=== PATIENT | male | born 1955 | race Native Hawaiian/Other Pacific Islander ===

== ENCOUNTER 2018-12-05 05:51 | Observation (INO) | payer BC ==
[~2018-12-05 05:51] MED LIST: Buffered Lidocaine 1% SYRIN* 1 ML/SYRINGE INTRADERM ONE
[2018-12-05] MEDS ORDERED: DiMENhydriNATE IV* 50 MG/ML VIAL IV PUSH ONE (06:00)
[2018-12-05] MEDS ORDERED: Lactated Ringers 1000 ML Bag* 1,000 ML IV SCH ×2 (06:00→13:00)
[2018-12-05] MEDS ORDERED: Famotidine IV* 10 MG/ML 2 ML (20 mg) IV ONE (06:00)
[2018-12-05] MEDS ORDERED: DiMENhydriNATE IV* 50 MG/ML VIAL ONE (06:31)
[2018-12-05] MEDS ORDERED: ceFAZolin 2 GM PREMIX in ORs 2 GM/50 ML BAG IVPB ONE (06:32)
[2018-12-05] MEDS ORDERED: Buffered Lidocaine 1% SYRIN* 1 ML/SYRINGE INTRADERM ONE (06:32)
[2018-12-05] MEDS ORDERED: Famotidine IV* 10 MG/ML 2 ML (20 mg) ONE (06:32)
[2018-12-05] MEDS ORDERED: Lidocaine 1% MPF wEPI 200,000* 30 ML SDV ONE (06:45)
[2018-12-05] MEDS ORDERED: Bacitracin INJECTION* 50,000 UNITS ONE (06:46)
[2018-12-05] MEDS ORDERED: Thrombin 5,000 UNITS* 1 APPLIC KIT - topical use - TOPICAL ONE (06:46)
[2018-12-05] MEDS ORDERED: fentaNYL* 50 MCG/ML 5 ML VIAL (250 MCG VIAL) ONE (07:04)
[2018-12-05] MEDS ORDERED: Succinylcholine* 20 MG/ML 10 ML VIAL ONE (07:04)
[2018-12-05] MEDS ORDERED: Propofol* 10 MG/ML 20 ML BTL ONE (07:04)
[2018-12-05] MEDS ORDERED: Midazolam* 1 MG/ML 5 ML VIAL (5 MG) ONE (07:04)
[2018-12-05] MEDS ORDERED: Lidocaine 2% PF * 5 ML VIAL ONE (07:05)
[2018-12-05] MEDS ORDERED: oxyCODONE/Acetamin 5/325 MG* TAB PO PRN (07:31)
[2018-12-05] MEDS ORDERED: PROCHLORPERAZINE INJ 5 MG/ML 2 ML VIAL IV PRN (07:31)
[2018-12-05] MEDS ORDERED: HYDROcodone/ACETAMIN 5-325 MG* 1 TAB PO PRN (07:31)
[2018-12-05] MEDS ORDERED: Naloxone* 0.4 MG/ML 1 ML VIAL IV PRN (07:31)
[2018-12-05] MEDS ORDERED: EPHEDrine (Pressors)* 50 MG/ML VIAL ONE (08:17)
[2018-12-05] MEDS ORDERED: Phenylephrine 10 MG/ML VIAL* 1 ML VIAL ONE (08:22)
[2018-12-05] MEDS ORDERED: Rocuronium* 10 MG/ML VIAL ONE ×2 (08:48→09:21)
[2018-12-05] MEDS ORDERED: Dexamethasone IV* 4 MG/ML 1 ML (4 MG) ONE (09:28)
[2018-12-05] MEDS ORDERED: fentaNYL* 50 MCG/ML 2 ML VIAL (100 MCG VIAL) ONE ×3 (09:37→13:17)
[2018-12-05] MEDS ORDERED: Ondansetron INJ* 2 MG/ML VIAL ONE (10:30)
[2018-12-05] MEDS ORDERED: Glycopyrrolate IV* 0.2 MG/ML 1 ML VIAL ONE (10:59)
[2018-12-05] MEDS ORDERED: Neostigmine Methylsulfate* 3 MG/3 ML SYRINGE ONE (10:59)
[2018-12-05] MEDS: fentaNYL* 50 MCG/ML 2 ML VIAL (100 MCG VIAL) IV PRN ×3 (12:32→13:19)
[2018-12-05] MEDS ORDERED: Magnesium Hydroxide LIQ* 30 ML UDC PO PRN (12:34)
[2018-12-05] MEDS ORDERED: Ondansetron INJ* 2 MG/ML VIAL IV PRN (12:34)
--- NOTE | 2018-12-05 14:08 | OP ---
OPERATIVE REPORT: DATE OF OPERATION: 12/05/18 DATE OF : 55 SURGEON: Sarah Ruff MD. ASSISTANTS: TONYA Pitts; TONYA Priest The case was done with the assistance of surgical PA because of the complexity of the case. ANESTHESIA: General. PRE-OP DIAGNOSES: 1. Degenerative disk disease. 2. Cervical stenosis. 3. Cervical spondylotic myelopathy with radiculopathy. POST-OP DIAGNOSES: 1. Degenerative disk disease. 2. Cervical stenosis. 3. Cervical spondylotic myelopathy with radiculopathy. OPERATIVE PROCEDURE: The patient underwent anterior cervical diskectomy and fusion at C5-6 and C6-7 with PEEK interbody spacers, autologous bone graft, and DBX putty with plate and pedicle screws with intraoperative monitoring and intraoperative microscope. ESTIMATED BLOOD LOSS: 25 mL. COMPLICATIONS: None. SUMMARY: The patient is a very pleasant 63-year-old gentleman with complaints of neck pain radiating to left more than right upper extremity. The patient had been diagnosed with cervical spondylotic myelopathy with polyradiculopathy and also peripheral neuropathy in both upper and lower extremities with a left ulnar and left median neuropathy. The patient failed conservative treatment modalities and he was offered the option of surgical intervention. After explaining the expectation, limitations, and possible complications of the procedure with complications including, but not limited to bleeding, infection, risk of injury to adjacent structures, coma, paralysis, , need for additional procedures, anesthesia risks, stroke, blindness, cancer, instability , hardware failure, adjacent level disease, pseudoarthrosis, spinal fluid leak, Tony syndrome, injury to the trachea or esophagus, need for tracheostomy or gastrostomy, inability to improve; the patient and his were agreeable to proceed with surgery and informed consent was obtained. The patient also understood that his condition may not improve and in fact may get worse after surgery and that the goal of the procedure is to stabilize his neurological condition. He understood that the operative plan may be modified according to intraoperative findings and conditions and that he may need to have additional procedures in the future. He also understood that he may need to have prolonged ICU stay, prolonged hospitalization, and need for prolonged rehabilitation. The patient is also scheduled for followup with Dr. Lam for his ulnar and median neuropathy and he is followed by Dr. Tobin for his peripheral neuropathy. DESCRIPTION OF PROCEDURE: The patient was brought to the operating room and was placed under general anesthesia by anesthesia team. He was carefully positioned supine on the Elton table and all bony prominences were meticulously padded. His skin was prepped and draped in the standard fashion. After appropriate surgical pause and patient identification, a small right transverse incision at the level of C6-7 approximately, was performed after infiltrating the skin with local anesthetic. The appropriate surgical level was confirmed with intraoperative fluoroscopic imaging prior to the incision. The skin was undermined and the platysma was then gently elevated and divided with sharp dissection. Then, the platysma was gently undermined and the plane between the medial border of the sternocleidomastoid and the medial structures was gently developed with sharp and blunt dissection. The prevertebral fascia was identified and gently divided, and after exposing the anterior part of the cervical spine, intraoperative fluoroscopic imaging confirmed appropriate surgical level. [place] pins were placed in the vertebral body of C5, C6, and C7 , and self-retaining retractors were introduced into the field. A diskectomy was performed under microscopic magnification at the C5-6 level and later at the C6-7 level, after positioning of the retractors and after incising the annulus fibrosus with a #15 surgical blade. The locally harvested bone graft was saved and used for the arthrodesis part of the procedure. The diskectomy and disk space preparation was performed with the use of pituitary rongeurs, Kerrison punches, high-speed drill, and curettes. After dividing the posterior longitudinal ligament and performing foraminotomies bilaterally. Of note, prior to insertion of the cage, the thecal sac was found to be free of any pressure phenomenon and insertion of the interbody cages was done after meticulous hemostasis confirmation, copious irrigation, and meticulous inspection. An 8-mm height PEEK interbody cage for the C5-6 and 9-mm height for the C6-7 level were inserted after being filled with locally harvested bone graft and DBX. The [place] pins were gently removed and appropriate sized surgical plate was placed and secured in place with screws. Intraoperative fluoroscopic imaging confirmed excellent placement of all hardware. Self- retaining retractors were gently removed and meticulous hemostasis was confirmed and copious irrigation was performed and after meticulous inspection, the wound was closed by layers over a Andrews drain which was tunneled through a separate stab wound incision. The platysma was approximated with 2-0 interrupted Vicryl sutures. The subcutaneous tissue was approximated with 2-0 inverted interrupted Vicryl sutures and the skin was covered with Dermabond. At the end of the procedure, all counts were reported to be correct. The patient remained hemodynamically stable throughout the case. The patient was then extubated and was transferred to Recovery in excellent condition. I was present and scrubbed for the entirety of the case. The case was done with the assistance of surgical PAs because of the complexity of the case. [id number]/[facility] #: [id number] JOCELYN
[2018-12-05] MEDS: HYDROcodone/ACETAMIN 5-325 MG* 1 TAB PO PRN ×2 (14:12→18:12)
[2018-12-05] MEDS ORDERED: Dextrose 50% Syringe 50 ML* 25 GM/50 ML SYRINGE IV PUSH PRN (18:56)
[2018-12-05] MEDS: Atorvastatin* 10 MG TAB PO SCH (20:44)
[2018-12-05] MEDS: Ezetimibe TAB* 10 MG PO SCH (20:44)
[2018-12-05] MEDS: Lisinopril TAB* 10 MG PO SCH (20:44)
[2018-12-05] MEDS: EMPAGLIFOZIN 25 MG PO SCH (20:46)
[2018-12-05] MEDS: Insulin GLARGINE(*) 1 UNITS UNIT SUBCUT SCH (20:47)
--- NOTE | 2018-12-05 21:45 | CONS ---
CC: Lucy King NP; Sarah Ruff MD * CONSULTATION REPORT: DATE OF CONSULT: 12/05/18 PRIMARY CARE PROVIDER: Lucy King NP. NEUROSURGEON: Sarah Ruff MD. REQUESTING PHYSICIAN: Sarah Ruff MD. ATTENDING PHYSICIAN: Ruchi Hernandez MD (dictated by TONYA Martins). REASON FOR CONSULTATION: Co-medical management. HISTORY OF PRESENT ILLNESS/HOSPITAL COURSE: Mr. Saleh is a 63-year-old male with a past medical history of cervical radiculopathy, diabetes mellitus, hypertension, hyperlipidemia, who presented to the hospital today for an anterior cervical diskectomy with fusion. He is seen in his room after the procedure. He states that he has anterior right-sided cervical neck pain that he rates at a 6/10. He describes painful swallowing and talking but notes that he is able to do both. He is eating a regular diet without any difficulty at the time of discussion. He continues to complain of right arm pain, numbness, and tingling which also occur in both of his feet. He notes that this is chronic. He denies any difficulty breathing. He denies chest pain, shortness of breath, abdominal pain, nausea, vomiting, diarrhea, constipation. PAST MEDICAL HISTORY: 1. Cervical radiculopathy. 2. Diabetes mellitus. 3. Hypertension. 4. Hyperlipidemia. PAST SURGICAL HISTORY: Appendectomy. HOME MEDICATIONS: 1. Aspirin 81 mg p.o. daily. 2. Cholecalciferol 2000 units p.o. q.a.m. 3. Empagliflozin 10 mg p.o. at bedtime. 4. Ezetimibe 10 mg p.o. at bedtime. 5. Insulin aspart 20 units before breakfast, 20 units before lunch, 24 units before dinner. 6. Insulin detemir 30 units a.m., 50 units p.m. 7. Lisinopril 20 mg p.o. at bedtime. 8. Loratadine 10 mg p.o. q.a.m. 9. Multivitamin 1 tab p.o. q.a.m. 10. Pravastatin 20 mg p.o. at bedtime. ALLERGIES: No known drug allergies. FAMILY HISTORY: Positive for diabetes mellitus, EtOH abuse leading to liver disease, stroke - aneurysmal. Negative for heart disease, cancer. SOCIAL HISTORY: The patient is a former smoker; he quit approximately 20 years ago; he has a 26-frea-bhkm history. He drinks alcohol weekly averaging approximately 4 to 6 alcoholic drinks per week. 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 He lives at home and is happily . He has no children. REVIEW OF SYSTEMS: A 10-point review of systems was performed and all the pertinent positives and negatives are in the HPI. PHYSICAL EXAM: General: Mr. Saleh is a well-developed, well-nourished 63- year- old obese male who is sitting up in bed with his legs at the floor. He is eating his dinner and talking without difficulty. He has a C-collar in place. He appears his stated age and appears to be in no acute distress. Vital Signs: Temperature 97.4 oral, heart rate 58, respiratory rate 18, oxygen saturation 93% on room air, blood pressure 116/61. HEENT: His visual martines are grossly intact. His pupils are equally round and reactive to light. Extraocular movements are intact. There is no scleral icterus. His hearing appears to be grossly intact. Oral mucous membranes are moist. There are no lesions. The pharynx is clear. Neck: C-collar is in place. The right anterior neck has a bandage in place the entire length of the neck that is clean , dry, and intact. There is a MELVIN drain in place and draining. Cardiovascular: Regular rate and rhythm with S1, S2 present. No murmurs, rubs, clicks, or gallops. There is no JVD. Respiratory: Symmetrical chest expansion without use of accessory muscles. The lungs are clear to auscultation bilaterally. There are no rhonchi, wheeze, or rales. Abdomen is obese. Bowel sounds noted in all quadrants. Abdomen is soft and nontender to palpation. Musculoskeletal : Full range of motion in extremities. Skin is warm and smooth bilaterally. There is no clubbing, cyanosis, or edema. Radial and pedal pulses are palpable. Neuro: The patient is awake. He is alert and oriented x3. He is able to move all his extremities. Motor strength in upper and lower extremities is 5/5. ASSESSMENT AND PLAN: Mr. Saleh is a 63-year-old male with a past medical history of cervical radiculopathy, diabetes, hypertension, hyperlipidemia, who presents to [facility] [place] [place] today for an anterior cervical diskectomy with C5-C6 and C6-C7 fusion. He will be placed on observation for: 1. Status post anterior cervical diskectomy with C5-C6, C6-C7 fusion postop day 1. Management per Dr. Ruff. 2. Diabetes mellitus. The patient is typically on Levemir 30/50, NovoLog before meals at doses 20, 20, 24, and Jardiance 25. Due to the fact that typically p.o. intake is decreased in the hospital setting, the patient will be placed on Levemir 20 b.i.d. Lispro sliding scale will be added a.c. The patient will also continue his Jardiance if it is available. 3. Hypertension. Continue lisinopril 20. 4. Hyperlipidemia. Continue pravastatin 20. 5. FEN: The patient will be placed on consistent carbohydrate diet. 6. Code status: Full code. 7. DVT prophylaxis: Per Neurosurgery, up ad raymundo, SCDs. TIME SPENT: Approximately 30 minutes was spent on this consultation, greater than half that time was spent [id number] with the patient obtaining history, performing physical, and reviewing the plan of care. The case has been reviewed with my attending Dr. Hernandez, who is in agreement with the plan of care. TONYA KEANE [id number]/[facility] #: [id number] MTDAmmy
[2018-12-06] MEDS: HYDROcodone/ACETAMIN 5-325 MG* 1 TAB PO PRN (07:21)
[2018-12-06] MEDS: Cetirizine* 10 MG TAB PO SCH (09:48)
[2018-12-06] MEDS: Cholecalciferol TAB* 1000 UNITS PO SCH (09:48)
[2018-12-06] MEDS ORDERED: PROCHLORPERAZINE INJ 5 MG/ML 2 ML VIAL IV ONE (09:49)
[2018-12-06] MEDS: Insulin LISPRO* 1 UNITS UNIT SUBCUT SCH ×3 (09:50→17:55)
[2018-12-06] MEDS: Insulin GLARGINE(*) 1 UNITS UNIT SUBCUT SCH (09:50)
[2018-12-06] MEDS ORDERED: PROCHLORPERAZINE INJ 5 MG/ML 2 ML VIAL ONE (09:54)
[2018-12-06] MEDS ORDERED: Scopolamine 1.5 mg* PATCH ONE (09:55)
[2018-12-06] MEDS ORDERED: Scopolamine 1.5 mg* PATCH TRANSDERM SCH (10:00)
[2018-12-06] MEDS ORDERED: Scopolamine PATCH Remove* 1 NOTE MISC PATCH OFF SCH (10:00)
--- NOTE | 2018-12-06 10:00 | PN ---
Progress Note - Progress Note Date of Service: 12/06/18 SOAP: Subjective: 63 y/o male s/p ACDF at C5/C6,C6/C7 POD #1 patient has had some episodes of nausea over night, but otherwise has been stable. He has not attempted to eat, but has tolerated oral fluids. His MELVIN drain put 45 over night and his vitals have been stable. Objective: Vital Signs - 8 hr 12/06/18 12/06/18 12/06/18 02:33 03:41 07:21 Temperature 98.7 F Pulse Rate 80 Respiratory 16 18 Rate Blood Pressure 124/60 (mmHg) O2 Sat by Pulse 92 93 Oximetry General: Patient laying in bed comfortable, NAD Neuro: GCS 15, A&O x 3 CN II - XII grossly intact. has some decrease sensation on right UPE 4 th and 5th digit. Motor strength 5/5 bilat. Left UPE forearm decrease sensation. Derm: wound C/D/I Assessment: 63 y/o male post ACDF at C5 - C7 recovering appropriately has not eaten as this time, but is stable. Plan: [1) Encourage walk with PT/OT 2) Have patient attempt to eat 3) D/C planning.
[2018-12-06 10:02] LABS: ABS Lymphocytes 1.2 10^3/ul (1.0-4.8); ABS Monocytes 1.5 10^3/ul (0-0.8); ABS Neutrophils 10.6 10^3/ul (1.5-7.7); Eosinophil % 0.1 %; Hematocrit 40 % (42-52); Hemoglobin 13.3 g/dL (14.0-18.0); Lymphocyte % 8.7 %; Mean Corpuscular HGB Conc 33 g/dL (31-36); Mean Corpuscular Hemoglobin 29 pg (27-31); Mean Corpuscular Volume 89 fL (80-94); Mean Platelet Volume 8.8 fL (7.4-10.4); Nucleated Red Blood Cells % 0.1; Platelet Count 326 10^3/uL (150-450); Red Blood Count 4.52 10^6 /uL (4.18-5.48); Red Cell Distribution Width 14 % (10.5-15); White Blood Count 13.3 10^3/uL (3.5-10.8)
[2018-12-06 10:13] LABS: BUN/Creatinine Ratio 31.3 (8-20); Calcium 9.2 mg/dL (8.6-10.3); EGFR African American 92.4 (>60); EGFR Non-African American 76.3 (>60); Potassium 4.1 mmol/L (3.5-5.0)
[2018-12-06] MEDS: Acetaminophen TAB* 325 MG PO PRN ×2 (13:54→22:11)
--- NOTE | 2018-12-06 17:35 | PN ---
Subjective Date of Service: 12/06/18 Interval History: VS: WNL Labs: post-op leukocytosis and anemia Pt reports nausea this morning and last night after meal. He also reports V. Medications ordered, and he reports that this has since resolved. He c/o decreased appetite. He states that he has neck pain, rating it at 6/10. Denies difficulty swallowing, breathing. Denies CP, SOB, cough, fever, chills, abd pain, n/v/d/c. Objective Active Medications: Acetaminophen (Tylenol Tab*) 650 mg PO Q4H PRN Hydrocodone Bitart/Acetaminophen ([place] 5-325 Tab*) 2 tab PO Q4H PRN Atorvastatin Calcium (Lipitor*) 5 mg PO BEDTIME NATHALY; Protocol Cetirizine HCl (Zyrtec*) 10 mg PO QAM NATHALY Cholecalciferol (Vitamin D Tab*) 1,000 units PO DAILY NATHALY Dextrose (D50w Syringe 50 Ml*) 12.5 gm IV PUSH .FOR FS < 60 - SS PRN Ezetimibe (Zetia Tab*) 10 mg PO BEDTIME NATHALY Empagliflozin (Jardiance) 25 mg PO BEDTIME NATHALY Lactated Ringer's (Lactated Ringers 1000 Ml Bag*) 1,000 mls @ 75 mls/hr IV .per rate NATHALY Insulin Glargine (Lantus(*)) 20 units SUBCUT Q12HR NATHALY Insulin Human Lispro (Humalog*) 0 units SUBCUT AC NATHALY; Protocol Lisinopril (Prinivil Tab*) 20 mg PO BEDTIME NATHALY Magnesium Hydroxide (Milk Of Magnesia Liq*) 30 ml PO DAILY PRN Ondansetron HCl (Zofran Inj*) 4 mg IV Q6H PRN Pharmacy Profile Note (Scopolamine Patch Remove*) 1 note PATCH OFF .AFTER 72 HOURS NATHALY Scopolamine (Transderm-Scop 1.5 Mg Patch*) 1 patch TRANSDERM Q72H NATHALY Vital Signs: Temp Pulse Resp BP Pulse Ox 98.4 F 73 16 131/58 91 12/06/18 11:51 12/06/18 11:51 12/06/18 12:05 12/06/18 11:51 12/06/18 11:51 Oxygen Devices in Use Now: None Appearance: Pt is laying in bed resting comfortably. He wakes easily and respond to questions. Eyes: No Scleral Icterus, PERRLA Ears/Nose/Mouth/Throat: NL Teeth, Lips, Gums, Clear Oropharnyx, Mucous Membranes Moist Neck: NL Appearance and Movements; NL JVP, Trachea Midline, - - CDI dsg to ant R neck. C collar in place. Respiratory: Symmetrical Chest Expansion and Respiratory Effort, Clear to Auscultation Cardiovascular: NL Sounds; No Murmurs; No JVD, RRR, No Edema Abdominal: No Hepatosplenomegaly, - - Abd diffusely TTP without guarding, rebound Extremities: No Edema, No Clubbing, Cyanosis Neurological: Alert and Oriented x 3 Result Diagrams: 12/06/18 09:47 12/06/18 09:47 Assess/Plan/Problems-Billing Assessment: 63yom PMHx DM, HTL, HLD, cervical radiculopathy presents s/p ant cervical discectomy with fusion c5/6, c6/7. - Patient Problems (1) S/P cervical discectomy Comment: -Management per Dr. Grigsby (2) Nausea & vomiting Comment: -Zofran ineffective -Add compazine, scopalamine patch (3) Diabetes mellitus Comment: -Home dosing Detemir 30 a.m., 50 p.m. Given 20 a.m., 20 p.m. post-op -BS with slight elevation -Increase Glargine to 20 a.m., 30 p.m. (4) Hypertension Comment: -Contolled -Continue Lisinopril (5) Hyperlipidemia Comment: -Continue atorvastatin (6) DVT prophylaxis Comment: -Per Neurosurg: SCD, ambulation (7) Full code status Current Visit: Yes Status: Acute Code(s): Z78.9 - OTHER SPECIFIED HEALTH STATUS SNOMED Code(s): 819838367 Status and Disposition: Observation. Discharge per neurosurgery.
[2018-12-06] MEDS ORDERED: Insulin GLARGINE(*) 1 UNITS UNIT SUBCUT SCH (21:00)
[2018-12-06] MEDS: Ezetimibe TAB* 10 MG PO SCH (22:10)
[2018-12-06] MEDS: Lisinopril TAB* 10 MG PO SCH (22:10)
[2018-12-06] MEDS: Atorvastatin* 10 MG TAB PO SCH (22:11)
[2018-12-06] MEDS: EMPAGLIFOZIN 25 MG PO SCH (22:12)
[2018-12-07 05:38] LABS: ABS Lymphocytes 1.3 10^3/ul (1.0-4.8); ABS Monocytes 1.3 10^3/ul (0-0.8); ABS Neutrophils 7.6 10^3/ul (1.5-7.7); Eosinophil % 0.2 %; Hematocrit 39 % (42-52); Hemoglobin 12.8 g/dL (14.0-18.0); Mean Corpuscular HGB Conc 33 g/dL (31-36); Mean Corpuscular Hemoglobin 29 pg (27-31); Mean Corpuscular Volume 89 fL (80-94); Mean Platelet Volume 8.7 fL (7.4-10.4); Platelet Count 297 10^3/uL (150-450); Red Blood Count 4.35 10^6 /uL (4.18-5.48); Red Cell Distribution Width 14 % (10.5-15); White Blood Count 10.3 10^3/uL (3.5-10.8)
[2018-12-07] MEDS: Acetaminophen TAB* 325 MG PO PRN ×2 (07:28→11:38)
[2018-12-07] MEDS: Insulin LISPRO* 1 UNITS UNIT SUBCUT SCH ×3 (07:43→16:53)
--- NOTE | 2018-12-07 07:46 | PN ---
Subjective Date of Service: 12/07/18 Interval History: HD # 3 on 12/07 63 yo M with PMH IDDM and cervical radiculopathy presents to neurosurgical service for elective ACDF completed on 12/05 Overnight no acute events, VSS Labs: Normal This morning seen in bed, no further N/V, would like to have BM but otherwise doing OK, has had flatus, feels Tylenol controls pain well. Eager to go home, questions about post op diet, currently tolerating soft. Denies CP, SOB, GI, or other complaints. Objective Active Medications: Acetaminophen (Tylenol Tab*) 650 mg PO Q4H PRN PRN Reason: PAIN Last Admin: 12/07/18 07:28 Dose: 650 mg Hydrocodone Bitart/Acetaminophen ([place] 5-325 Tab*) 2 tab PO Q4H PRN PRN Reason: marked pain Last Admin: 12/06/18 07:21 Dose: 2 tab Atorvastatin Calcium (Lipitor*) 5 mg PO BEDTIME [facility]; Protocol Last Admin: 12/06/18 22:11 Dose: 5 mg Cetirizine HCl (Zyrtec*) 10 mg PO QAM [facility] Last Admin: 12/06/18 09:48 Dose: Not Given Cholecalciferol (Vitamin D Tab*) 1,000 units PO DAILY [facility] Last Admin: 12/06/18 09:48 Dose: Not Given Dextrose (D50w Syringe 50 Ml*) 12.5 gm IV PUSH .FOR FS < 60 - SS PRN PRN Reason: FS < 60 Ezetimibe (Zetia Tab*) 10 mg PO BEDTIME [facility] Last Admin: 12/06/18 22:10 Dose: 10 mg Empagliflozin (Jardiance) 25 mg PO BEDTIME [facility] Last Admin: 12/06/18 22:12 Dose: 25 mg Lactated Ringer's (Lactated Ringers 1000 Ml Bag*) 1,000 mls @ 75 mls/hr IV .per rate [facility] Insulin Glargine (Lantus(*)) 30 units SUBCUT Q24H [facility] Last Admin: 12/06/18 22:12 Dose: 30 unit Insulin Glargine (Lantus(*)) 20 units SUBCUT Q24H [facility] Insulin Human Lispro (Humalog*) 0 units SUBCUT AC [facility]; Protocol Last Admin: 12/07/18 07:43 Dose: Not Given Lisinopril (Prinivil Tab*) 20 mg PO BEDTIME [facility] Last Admin: 12/06/18 22:10 Dose: 20 mg Magnesium Hydroxide (Milk Of Magncarlos alberto Liq*) 30 ml PO DAILY PRN PRN Reason: CONSTIPATION Ondansetron HCl (Zofran Inj*) 4 mg IV Q6H PRN PRN Reason: NAUSEA/VOMITING Last Admin: 12/06/18 08:12 Dose: 4 mg Pharmacy Profile Note (Scopolamine Patch Remove*) 1 note PATCH OFF .AFTER 72 HOURS NATHALY Scopolamine (Transderm-Scop 1.5 Mg Patch*) 1 patch TRANSDERM Q72H [facility] Last Admin: 12/06/18 10:05 Dose: Not Given Vital Signs - 8 hr 12/07/18 12/07/18 12/07/18 03:39 07:34 07:37 Temperature 98.3 F 97.5 F Pulse Rate 87 82 Respiratory 18 18 16 Rate Blood Pressure 161/70 155/72 (mmHg) O2 Sat by Pulse 93 95 Oximetry Oxygen Devices in Use Now: None Appearance: Pleasant man in NAD, [place] J Collar Eyes: No Scleral Icterus, PERRLA Ears/Nose/Mouth/Throat: NL Teeth, Lips, Gums Neck: NL Appearance and Movements; NL JVP Respiratory: Symmetrical Chest Expansion and Respiratory Effort, Clear to Auscultation Cardiovascular: NL Sounds; No Murmurs; No JVD, RRR Abdominal: NL Sounds; No Tenderness; No Distention, No Hepatosplenomegaly Lymphatic: No Cervical Adenopathy Extremities: No Edema Skin: No Rash or Ulcers Neurological: Alert and Oriented x 3 Result Diagrams: 12/07/18 04:58 12/06/18 09:47 Assess/Plan/Problems-Billing Assessment: 63yom PMHx DM, HTL, HLD, cervical radiculopathy presents s/p ACDF c5/6, c6/7. - Patient Problems (1) S/P cervical discectomy Current Visit: Yes Status: Acute Code(s): Z98.890 - OTHER SPECIFIED POSTPROCEDURAL STATES SNOMED Code(s): 803890761 Comment: - Management per Dr. Grigsby - Offer Miralax (ordered) (2) Hypertension Current Visit: Yes Status: Acute Code(s): I10 - ESSENTIAL (PRIMARY) HYPERTENSION SNOMED Code(s): 79457521 Comment: - Continue Lisinopril, could d/c fluids if appropriate (3) Diabetes mellitus Current Visit: Yes Status: Acute Code(s): E11.9 - TYPE 2 DIABETES MELLITUS WITHOUT COMPLICATIONS SNOMED Code(s): 67278223 Comment: - Home dosing Detemir 30 a.m., 50 p.m. Given 20 a.m., 20 p.m. post- op - Glargine to 20 a.m., 30 p.m, well controlled here - Home med Jardiance continued (4) Nausea & vomiting Current Visit: Yes Status: Acute Code(s): R11.2 - NAUSEA WITH VOMITING, UNSPECIFIED SNOMED Code(s): 61939891 Comment: - Well controlled on compazine, PRN scopalamine (5) Hyperlipidemia Current Visit: Yes Status: Acute Code(s): E78.5 - HYPERLIPIDEMIA, UNSPECIFIED SNOMED Code(s): 22248483 Comment: - Continue atorvastatin, Ezitimibe (6) DVT prophylaxis Current Visit: Yes Status: Acute Code(s): Z29.9 - ENCOUNTER FOR PROPHYLACTIC MEASURES, UNSPECIFIED SNOMED Code(s): 056843230 Comment: - Per Neurosurg: SCD, ambulation (7) Full code status Current Visit: Yes Status: Acute Code(s): Z78.9 - OTHER SPECIFIED HEALTH STATUS SNOMED Code(s): 647525100 Status and Disposition: Observation. Discharge per neurosurgery.
[2018-12-07] MEDS ORDERED: Polyethylene Glycol 3350* 17 GM PACKET PO PRN (08:10)
[2018-12-07] MEDS: Cetirizine* 10 MG TAB PO SCH (08:41)
[2018-12-07] MEDS: Cholecalciferol TAB* 1000 UNITS PO SCH (08:41)
[2018-12-07] MEDS ORDERED: Insulin GLARGINE(*) 1 UNITS UNIT SUBCUT SCH (09:00)
--- NOTE | 2018-12-07 09:43 | PN ---
Progress Note - Progress Note Date of Service: 12/07/18 SOAP: Subjective: []POD # 2 Better this AM with less nausea C/O sore throat Objective: []Neck flat dressing intact Neuro intact Assessment: []Satis post op course Plan: []D/C today D/C instructions given
[2018-12-07 12:45] VITALS: BP 136/70
== END 2018-12-07 18:55 | disposition home or self-care (01) ==
LOC: OR 05:51 → SSU 12:34
PROVIDERS: ADMIT Neurological Surgery; ATTEND Neurological Surgery
DX: M50.122 Cervical disc disorder at C5-C6 level with radiculopathy (principal); M48.02 Spinal stenosis, cervical region; M47.12 Other spondylosis with myelopathy, cervical region; M50.123 Cervical disc disorder at C6-C7 level with radiculopathy; I10 Essential (primary) hypertension; E11.9 Type 2 diabetes mellitus without complications; R11.2 Nausea with vomiting, unspecified; E78.5 Hyperlipidemia, unspecified; G62.9 Polyneuropathy, unspecified
CPT/HCPCS: 36415; 72040; 76000; 80048; 85025; 96372; 96374; 96375; A9270-GY; C1713; C1776; C9359; G0378; J0330; J0690; J0780; J1100; J1240; J2001; J2250; J2405; J2704; J2710; J3010

== ENCOUNTER 2018-12-09 14:42 | Inpatient (IN) | payer BC ==
--- OUTSIDE RECORDS SUMMARY | 2018-12-09 14:50 | XMS REPORT | Continuity of Care Document ---
:1955 External Reference #:[id number] Author Name Farzaneh Hernández Care Team Providers Name Role Phone Lucy King NP Primary Care Physician Unavailable Payers Date Identification Numbers Payment Provider Subscriber Policy Number: [id number] [employer] Reuben Saleh PayID: [id number] [address] [address] [place] [address] Advance Directives Description No Information Available Problems Active Problems Provider Date Displacement of cervical intervertebral Sarah Ruff MD Onset: 06/06 disc Note: C5/6, C6/7Document: 04/18/17 - MRI Cervical Spine Wo Neck pain Sarah Ruff MD Onset: 06/19/2017 Carpal tunnel syndrome of left wrist Sarah Ruff MD Onset: 2016 Note: Document: 03/06/17 - [facility]CV Test Results Lesion of ulnar nerve Sarah Ruff MD Onset: 06/19/2017 Note: left Document: 03/06/17 - [facility]G-NCV Test Results Polyneuropathy Sarah Ruff MD Onset: 11/07/2017 Cervical disc disorder Sarah Ruff MD Onset: 11/07/2017 Resolved Problems Brachial neuritis Sarah Ruff MD Onset: 06/19/2017 Resolved: 08/25/2017 Note: has cervical disc disease Family History Date Family Member(s) Observation Comments General Diabetes Type II Sister General Aortic Aneurysm Father Father due to Stroke () - brain aneurysm - age 41 Mother due to Liver Disease () Siblings 8 sister DM; 4 sisters and 4 brothers. Social History Type Date Description Comments Sex Unknown Marital Status Lives With Occupation Currently Working Work Status Currently Working Tobacco Use Start: Unknown Never Smoked Cigarettes ETOH Use Occasionally consumes once a week, 2-3 alcohol drinks Tobacco Use Start: Unknown Patient is a former quit in his 40's, End: Unknown smoker smoked for 30 yrs, 2 ppd Recreational Drug Use Denies Drug Use Smoking Status Reviewed: 10/30/18 Patient is a former quit in his 40's, smoker smoked for 30 yrs, 2 ppd Exercise Type/Frequency Does not exercise physically demanding job. Allergies, Adverse Reactions, Alerts Description No Known Drug Allergies Medications Active Medications SIG Qnty Indications Ordering Provider Date Ezetimibe take 10mg by mouth 90tabs E78.5 Rohan Soto MD 09/26/2018 10mg daily Tablets Freestyle Jeffery 14 use at least 4 1units E11.65 Rohan Soto MD 09/26/2018 Day/[place]/Flash times daily with Monitoring System sensor Device Freestyle Jeffery [address] one sensor 2units E11.65 Rohan Soto MD 2018 Day/Sensor/Flash every 14 days Monitoring System Misc Jardiance take 1 tablet 30tabs E11.Marybeth Soto MD 06/24/2018 25mg daily Tablets Pravastatin Sodium take 20mg by mouth 30tabs E11.65 Rohan Soto MD 2017 daily at night 20mg Tablets Levemir Flextouch 30 units in the 30ml Rohan Soto MD morning and 50 100Unit/ML Solution units at night, Pen-Inject MDD 100 units Novolog Flexpen before meals, 20 15ml Rohan Soto MD units breakfast 100Unit/ML Solution and lunch and 24 Pen-Inject units at dinner meal. Vitamin D-1000 1 by mouth every Unknown Maximum Strength day 1000Unit Tablets Aspir-Low 2 by mouth every Unknown 81mg day Tablets DR Maldonadoatamike-D 24HR 1 tab daily Unknown 10-240mg Tablets ER 24HR Multi For Him 1 by mouth every Unknown day Capsules Lisinopril 1 by mouth every 90tabs Unknown 20mg day Tablets Onetouch Ultra Blue test twice a day Unknown and as needed Strips History Medications Naproxen take 1 tablet by mouth Unknown - 10/29/2018 500mg Tablets twice a day with food Tizanidine HCL take 1 tablet by mouth Unknown - 06/06/2017 4mg Tablets before Bed if needed Ventolin HFA 2 puffs by mouth four Unknown - 10/22/2018 108(90Base) mcg/Act times a day as needed Aerosol Immunizations Description No Information Available Vital Signs Date Vital Result Comment 10/30/2018 9:15am Height 69.5 inches 5'9.50" Weight 265.00 lb Heart Rate 70 /min BP Systolic Sitting 142 mmHg BP Diastolic Sitting 80 mmHg BMI (Body Mass Index) 38.6 kg/m2 10/23/2018 3:15pm Height 69.5 inches 5'9.50" Weight 268.00 lb Heart Rate 88 /min BP Systolic Sitting 140 mmHg BP Diastolic Sitting 76 mmHg Respiratory Rate 14 /min Pain Level 5 BMI (Body Mass Index) 39.0 kg/m2 10/08/2018 3:05pm Height 69.5 inches 5'9.50" Weight 268.00 lb BP Systolic Sitting 136 mmHg BP Diastolic Sitting 80 mmHg Pain Level 5 BMI (Body Mass Index) 39.0 kg/m2 09/26/2018 3:52pm Height 69.5 inches 5'9.50" Weight 267.00 lb w/ shoes Heart Rate 75 /min BP Systolic Sitting 152 mmHg BP Diastolic Sitting 76 mmHg BMI (Body Mass Index) 38.9 kg/m2 08/07/2018 11:30am Height 69.5 inches 5'9.50" Weight 270.00 lb BP Systolic Sitting 130 mmHg BP Diastolic Sitting 80 mmHg Pain Level 3 BMI (Body Mass Index) 39.3 kg/m2 06/24/2018 3:30pm Height 69.5 inches 5'9.50" Weight 270.00 lb w/ shoes Heart Rate 72 /min BP Systolic Sitting 164 mmHg BP Diastolic Sitting 86 mmHg BMI (Body Mass Index) 39.3 kg/m2 04/22/2018 10:51am Height 69.5 inches 5'9.50" Heart Rate 81 /min BP Systolic Sitting 142 mmHg large adult cuff left arm BP Diastolic Sitting 86 mmHg large adult cuff left arm Body Temperature 97.3 F O2 % BldC Oximetry 97 % at rest on room air 04/12/2018 11:47am Height 69.5 inches 5'9.50" Weight 267.00 lb Heart Rate 72 /min BP Systolic 180 mmHg BP Diastolic 94 mmHg BP Systolic Sitting 170 mmHg BP Diastolic Sitting 104 mmHg Respiratory Rate 16 /min BMI (Body Mass Index) 38.9 kg/m2 11/22/2017 3:17pm Height 69.5 inches 5'9.50" Weight 268.00 lb Heart Rate 82 /min BP Systolic 144 mmHg BP Diastolic 78 mmHg Respiratory Rate 16 /min Body Temperature 99.5 F Pain Level 4 BMI (Body Mass Index) 39.0 kg/m2 11/07/2017 1:01pm Height 69.5 inches 5'9.50" Weight 268.00 lb BP Systolic Sitting 160 mmHg BP Diastolic Sitting 88 mmHg Pain Level 3 BMI (Body Mass Index) 39.0 kg/m2 08/22/2017 10:07am Height 69.5 inches 5'9.50" Weight 268.00 lb Heart Rate 88 /min BP Systolic 134 mmHg BP Diastolic 78 mmHg Respiratory Rate 16 /min BMI (Body Mass Index) 39.0 kg/m2 06/19/2017 1:48pm Height 69.5 inches 5'9.50" Weight 269.00 lb Heart Rate 82 /min BP Systolic Sitting 130 mmHg BP Diastolic Sitting 81 mmHg Pain Level 7 BMI (Body Mass Index) 39.2 kg/m2 06/06/2017 1:43pm Height 69.5 inches 5'9.50" Weight 269.00 lb Heart Rate 64 /min BP Systolic Sitting 130 mmHg BP Diastolic Sitting 70 mmHg Pain Level 7 BMI (Body Mass Index) 39.2 kg/m2 Results Test Date Facility Test Result H/L Range Note Inr/Protime 11/29/2018 [facility] Inr 1.10 High 0.82-1.[address] [place] [address] [phone] Laboratory test 11/29/2018 [facility] Partial 35.7 seconds N 26.0-36.[address] [place] [address] PTT [phone] Urinalysis 11/29/2018 [facility] Urine Color Yellow Profile [address] [place] [address] [phone] Urine Appearance Clear Urine Specific [place] 1.029 N 1.010-1.030 Urine pH 5.0 N 5-9 Urine Urobilinogen Negative Negative Urine Ketones Negative Negative Urine Protein Negative Negative Urine Leukocytes Negative Negative Urine Blood Negative Negative Urine Nitrite Negative Negative Urine Bilirubin Negative Negative Urine Glucose 3+(>=500 mg/dL) Abnormal Negative Type & Screen 11/29/2018 [facility] Patient Blood Type O Negative [address] [place] [address] [phone] Antibody Screen NEGATIVE Laboratory test finding 09/26/2018 [facility] Glucose Random 86 Hemoglobin A1c 7.1 High 5-7 Basic Metabolic Panel 07/05/2018 [facility] Sodium 140 mmol/L N 135-145 [address] [place] [address] [phone] Potassium 4.5 mmol/L N 3.5-5.0 Chloride 103 mmol/L N 101-111 Co2 Carbon Dioxide 30 mmol/L N 22-32 Anion Gap 7 mmol/L N 2-11 Glucose 129 mg/dL High 70-100 Blood Urea Nitrogen 29 mg/dL High 6-24 Creatinine 0.97 mg/dL N 0.67-1.17 BUN/Creatinine Ratio 29.9 High 8-20 Calcium 9.5 mg/dL N 8.6-10.3 Egfr Non- 78.2 >60 Egfr 94.6 >60 2 Lipid Profile 07/05/2018 [facility] Triglycerides 105 mg/dL 3 (Trig/Chol/HDL) [address] [place] [address] [phone] Cholesterol 192 mg/dL 4 HDL Cholesterol 41.5 mg/dL 5 LDL Cholesterol 130 mg/dL 6 Laboratory test finding 06/24/2018 [facility] Glucose Random 143 1 Standard intensity warfarin therapeutic range: 2.0-3.0 High intensity warfarin therapeutic range: 2.5-3.5 2 Because ethnic data is not always readily available, this report includes an eGFR for both -Americans and non- Americans. The National Kidney Disease Education Program (NKDEP) does not endorse the use of the MDRD equation for patients that are not between the ages of 18 and 70, are , have extremes of body size, muscle mass, or nutritional status, or are non- or non-. According to the National Kidney Foundation, irrespective of diagnosis, the stage of the disease is based on the level of kidney function: Stage Description GFR(mL/min/1.73 m(2)) 1 Kidney damage with normal or decreased GFR 90 2 Kidney damage with mild decrease in GFR 60-89 3 Moderate decrease in GFR 30-59 4 Severe decrease in GFR 15-29 5 Kidney failure <15 (or dialysis) 3 Desirable: <150 Borderline High: 150-199 High: 200-499 Very High: >500 4 Desirable: <200 Borderline High: 200-239 High: >239 5 Low: <40 Desirable: 40-60 High: >60 6 Desirable: <100 Near Optimal: 100-129 Borderline High: 130-159 High: 160-189 Very High: >189 Procedures Date Code Description Status 09/12/2017 53225 Nerve Conduction 03-04 Studies Completed 09/12/2017 97521 Needle Electromyography Each Extremity W/Related Completed Paraspinal Areas Encounters Type Date Location Provider Dx Diagnosis Office Visit 10/30/2018 [facility] Corinna Tobin, G56.22 Lesion of ulnar 9:00a M.D. nerve, left upper limb G56.02 Carpal tunnel syndrome, left upper limb M50.122 Cervical disc disorder at C5-C6 level with radiculopathy G62.9 Polyneuropathy, unspecified Office Visit 10/23/2018 3:15p Orthopedic Jenni Lam G56.22 Lesion of [facility] ulnar nerve, left upper limb G56.02 Carpal tunnel syndrome, left upper limb Office 10/08/2018 [facility] M50.122 Cervical disc Visit 3:00p [facility] Ruff MD disorder at C5-C6 level with radiculopathy M50.123 Cervical disc disorder at C6-C7 level with radiculopathy M47.12 Other spondylosis with myelopathy, cervical region G62.9 Polyneuropathy, unspecified Office Visit 09/26/2018 4:00p [facility] Rohan Soto, Z79.4 long-term [facility] BR[facility] (current) use of insulin E11.65 Type 2 diabetes mellitus with hyperglycemia I10 Essential (primary) hypertension E78.5 Hyperlipidemia, unspecified Z87.891 Personal history of nicotine dependence Office 08/07/2018 [facility] M50.122 Cervical disc Visit 11:30a [facility] Ruff MD disorder at C5-C6 level with radiculopathy M50.123 Cervical disc disorder at C6-C7 level with radiculopathy G62.9 Polyneuropathy, unspecified Office Visit 06/24/2018 [facility] Madrigal Coch, E11.65 Type 2 diabetes 4:00p Endocrinology of [place] mellitus with [facility] hyperglycemia I10 Essential (primary) hypertension E78.5 Hyperlipidemia, unspecified Z68.39 Body mass index (BMI) 39.0-39.9, adult E66.9 Obesity, unspecified E11.21 Type 2 diabetes mellitus with diabetic nephropathy 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 E11.40 Type 2 diabetes mellitus with diabetic neuropathy, [facility] Office 04/22/2018 [facility] M50.122 Cervical disc Visit 11:00a [facility] Ruff MD disorder at C5-C6 level with radiculopathy M50.123 Cervical disc disorder at C6-C7 level with radiculopathy Office Visit 04/12/2018 11:30a [facility] Corinna Tobin, G56.22 Lesion of [facility] Newman ulnar nerve, left upper limb G56.02 Carpal tunnel syndrome, left upper limb G62.9 Polyneuropathy, unspecified M50.122 Cervical disc disorder at C5-C6 level with radiculopathy I10 Essential (primary) hypertension Office Visit 11/22/2017 3:15p Orthopedic Jenni Lam, G56.22 Lesion of [facility] ulnar nerve, left upper limb G56.02 Carpal tunnel syndrome, left upper limb Office 11/07/2017 [facility] G62.9 Polyneuropathy, Visit 1:30p [facility] Ruff MD unspecified M50.122 Cervical disc disorder at C5-C6 level with radiculopathy M50.123 Cervical disc disorder at C6-C7 level with radiculopathy G56.02 Carpal tunnel syndrome, left upper limb G56.22 Lesion of ulnar nerve, left upper limb Office Visit 08/22/2017 10:00a [facility] Corinna Tobin, 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 M50.122 Cervical disc disorder at C5-C6 level with radiculopathy M50.123 Cervical disc disorder at C6-C7 level with radiculopathy G56.02 Carpal tunnel syndrome, left upper limb G56.22 Lesion of ulnar nerve, left upper limb Office 06/19/2017 [facility] M50.122 Cervical disc Visit 2:00p [facility] Ruff MD disorder at C5-C6 level with radiculopathy M50.123 Cervical disc disorder at C6-C7 level with radiculopathy G56.02 Carpal tunnel syndrome, left upper limb G56.22 Lesion of ulnar nerve, left upper limb Office Visit 06/06/2017 [facility] M50.222 Other cervical 2:00p [facility] Ruff MD disc displacement at C5-C6 level Plan of Treatment Future Appointment(s):01/07/2019 8:30 am - Jenni Lam M.D. at [facility]12/25/2018 9:45 am - Jenni Lam M.D. at [facility]03/07/2019 11:30 am - Sarah Ruff MD at [facility]01/08/2019 11:30 am - Sarah Ruff MD at [facility]05/02/2019 3:30 pm - Corinna Tobin M.D. at [facility]12/17/2018 1:00 pm - Sarah Ruff MD at [facility]12/05/2018 7:30 am - Aletha Higgins PA-C at [facility]12/05/2018 7:30 am - Sarah Ruff MD at [facility]12/25/2018 4:20 pm - Rohan Soto MD at [facility]10/30/2018 - Corinna Tobin M.D.G56.22 Lesion of ulnar nerve, left upper limbRecommendations:Avoid leaning on both your elbows.G56.02 Carpal tunnel syndrome, left upper limbM50.122 Cervical disc disorder at C5-C6 level with radiculopathyFollow up:6 MONTHS (30 min)G62.9 Polyneuropathy, unspecified
--- OUTSIDE RECORDS SUMMARY | 2018-12-09 14:51 | XMS REPORT | Continuity of Care Document ---
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 [address] PayID: [id number] AUSTYN Humphrey [address] Advance Directives Description No Information Available Problems Description No Information Family History Date Family Member(s) Observation Comments Father due to Aneurysm () - cerebral Mother due to Liver Disease () - ETOH First Sister 60 First Sister Diabetes type 2 Grandmother Diabetes lost a leg due to DM.... age 90 Social History Type Date Description Comments Sex Unknown Marital Status Lives With Spouse Diet Healthy, Well Balanced reports his diet is horrible, has had a lot of stress over the year. 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 09/13/2018 daily Fernando, AGITATOR OPERATOR-C Strips Lisinopril 1 by mouth every day 30tabs I10 [facility]. 07/03/2018 20mg Fernando, AGITATOR OPERATOR-C Tablets Blood Pressure use to check blood 1units I10 [facility] R. 05/29/2018 Monitor pressure daily dx HTN Fernando AGITATOR OPERATOR-C Deluxe/Automatic i10 Device Loratadine take one tablet by 30tabs [facility] R. 02/23/2017 10mg mouth every day for Fernando AGITATOR OPERATOR-C Tablets allergies Multi For Him 50+ daily [facility] R. 02/23/2017 Fernando, AGITATOR OPERATOR-C Tablets Pravastatin Sodium take 1 tablet by Unknown mouth every evening 20mg Tablets Jardiance Unknown 25mg Tablets Vitamin D 1 by mouth every day Unknown 1000Unit Tablets Aspir-81 1 by mouth every day Unknown 81mg Tablets DR Torres inject 50 units Unknown subcutaneously 2x 100Unit/ML daily Solution Novolog Flexpen inject up to 60 units 45ml [facility] R. a day with meals Fernando AGITATOR OPERATOR-C 100Unit/ML Solution Pen-Inject History Medications Lisinopril 1 by mouth every 30tabs I10 [facility] R. 05/29/2018 - 10mg day Fernando, AGITATOR OPERATOR-C 07/03/2018 Tablets Xarelto 1 tab by mouth 45tabs [facility] 09/11/2017 - 10mg Tablets daily for 45 days Shortle, TELECOM FIELD TECHNICIAN 10/27/2017 Lisinopril 1 tab daily for 30tabs I10 [facility] 09/03/2017 - 10mg high blood Shortle, TELECOM FIELD TECHNICIAN 05/29/2018 Tablets pressure Ventolin HFA 2 puff inhalation 8gm J18.9 [facility] 08/27/2017 - every 4 to 6 hours Shortle, TELECOM FIELD TECHNICIAN 11/12/2018 108(90Base) mcg/Act as needed Aerosol Levaquin Take 1 tablet by 7tabs [facility] 08/24/2017 - 750mg mouth daily for 7 Shortle, TELECOM FIELD TECHNICIAN 09/03/2017 Tablets days for infection Tamiflu take 1 capsule by 10caps J06.9 Nicole 08/23/2017 - 75mg Capsules mouth 2 times per Shortle, TELECOM FIELD TECHNICIAN 08/27/2017 day for 5 days for flu Doxycycline Hyclate 1 by mouth twice a 20caps J18.9 Lucy NaranjoCynthia 08/09/2017 - day for 10 days ANIBAL King-C 08/19/2017 100mg Capsules Immunizations CPT Code Status Date Vaccine Lot # [id number] Given 10/25/2017 Pneumovax 23 (PPSV23) 65+ years or high risk 2 to [id number] 64 year old [id number] Given 02/23/2017 Tdap (Adacel) [id number] Refused 02/23/2017 Influenza Virus Vaccine, Quadrivalent, 3 Yr > Quad , Preserv Free Vital Signs Date Vital Result Comment 11/13/2018 3:51pm Weight 263.00 lb Weight 119.297 kg BP Systolic 128 mmHg BP Diastolic 74 mmHg Heart Rate 70 /min Body Temperature 98.2 F Respiratory Rate 16 /min Height 70 inches 5'10" BMI (Body Mass Index) 37.7 kg/m2 O2 % BldC Oximetry 98 % 09/04/2018 3:41pm Weight 261.00 lb Weight 118.390 kg BP Systolic 150 mmHg BP Diastolic 80 mmHg Heart Rate 90 /min Body Temperature 98.5 F O2 % BldC Oximetry 95 % 08/21/2018 4:33pm Weight 269.00 lb Weight 122.018 kg BP Systolic 132 mmHg BP Diastolic 70 mmHg Heart Rate 80 /min Body Temperature 98.7 F Respiratory Rate 18 /min 07/03/2018 4:19pm Weight 268.00 lb Weight 121.565 kg BP Systolic 130 mmHg BP Diastolic 70 mmHg Heart Rate 84 /min Body Temperature 97.3 F Respiratory Rate 18 /min 05/29/2018 4:11pm Weight 271.00 lb Weight 122.926 kg BP Systolic 142 mmHg BP Diastolic 77 mmHg Heart Rate 84 /min Body Temperature 99.8 F Height 69.5 inches 5'9.50" BMI (Body Mass Index) 39.4 kg/m2 O2 % BldC Oximetry 96 % 03/27/2018 4:17pm Weight 269.00 lb Weight 122.018 kg BP Systolic 132 mmHg BP Diastolic 79 mmHg Heart Rate 84 /min Body Temperature 99.3 F O2 % BldC Oximetry 96 % 10/25/2017 4:07pm Weight 264.00 lb w/ boots Weight 119.750 kg BP Systolic 118 mmHg BP Diastolic 82 mmHg Heart Rate 84 /min Body Temperature 98.8 F Respiratory Rate 20 /min O2 % BldC Oximetry 98 % 10/01/2017 4:15pm Weight 268.00 lb Weight 121.565 kg BP Systolic 138 mmHg BP Diastolic 72 mmHg Heart Rate 84 /min Body Temperature 98.5 F Respiratory Rate 16 /min 09/11/2017 11:07am Weight 261.00 lb Weight 118.390 kg BP Systolic 140 mmHg BP Diastolic 72 mmHg Body Temperature 99.5 F 09/03/2017 10:34am Weight 264.00 lb Weight 119.750 kg BP Systolic 160 mmHg BP Diastolic 92 mmHg Heart Rate 86 /min Body Temperature 98.0 F O2 % BldC Oximetry 98 % 08/27/2017 2:36pm Weight 263.00 lb Weight 119.297 kg BP Systolic 150 mmHg BP Diastolic 80 mmHg Heart Rate 78 /min Body Temperature 98.9 F Respiratory Rate 16 /min O2 % BldC Oximetry 98 % 08/23/2017 11:22am Weight 267.00 lb Weight 121.111 kg BP Systolic 150 mmHg BP Diastolic 80 mmHg Heart Rate 91 /min Body Temperature 100.6 F Respiratory Rate 18 /min O2 % BldC Oximetry 97 % 08/09/2017 4:20pm Weight 267.00 lb Weight 121.111 kg BP Systolic 168 mmHg BP Diastolic 64 mmHg Heart Rate 107 /min Body Temperature 98.4 F Respiratory Rate 20 /min O2 % BldC Oximetry 98 % 04/09/2017 2:13pm Weight 270.00 lb Weight 122.472 kg BP Systolic 150 mmHg BP Diastolic 88 mmHg Heart Rate 85 /min Body Temperature 98.1 F Respiratory Rate 18 /min O2 % BldC Oximetry 97 % 02/23/2017 3:31pm Weight 265.00 lb Weight 120.204 kg BP Systolic 130 mmHg BP Diastolic 80 mmHg Heart Rate 92 /min Body Temperature 97.9 F Respiratory Rate 14 /min Height 70 inches 5'10" BMI (Body Mass Index) 38.0 kg/m2 Results Test Date Facility Test Result H/L Range Note CBC Auto Diff 11/13/2018 [facility] White Blood 7.9 10^3/uL N 3.5-10.8 [phone] Count Red Blood Count 4.69 10^6/uL N 4.18-5.48 Hemoglobin 13.9 g/dL Low 14.0-18.0 Hematocrit 42 % N 36-46 Mean Corpuscular Volume 89 fL N 80-94 Mean Corpuscular Hemoglobin 30 pg N 27-31 Mean Corpuscular HGB Conc 33 g/dL N 31-36 Red Cell Distribution Width 14 % N 10.5-15 Platelet Count 293 10^3/uL N 150-450 Mean Platelet Volume 9.5 fL N 7.4-10.4 Abs Neutrophils 4.4 10^3/uL N 1.5-7.7 Abs Lymphocytes 2.4 10^3/uL N 1.0-4.8 Abs Monocytes 0.8 10^3/uL N 0-0.8 Abs Eosinophils 0.2 10^3/uL N 0-0.6 Abs Basophils 0.1 10^3/uL N 0-0.2 Abs Nucleated RBC 0 10^3/uL Granulocyte % 55.8 % Lymphocyte % 30.5 % Monocyte % 10.4 % Eosinophil % 2.7 % Basophil % 0.6 % Nucleated Red Blood Cells % 0.1 Comp Metabolic Panel 11/13/2018 [facility] Sodium 141 mmol/L N 135-145 [phone] Potassium 4.3 mmol/L N 3.5-5.0 Chloride 103 mmol/L N 101-111 Co2 Carbon Dioxide 30 mmol/L N 22-32 Anion Gap 8 mmol/L N 2-11 Glucose 86 mg/dL N 70-100 Blood Urea Nitrogen 24 mg/dL N 6-24 Creatinine 1.09 mg/dL N 0.67-1.17 BUN/Creatinine Ratio 22.0 High 8-20 Calcium 9.6 mg/dL N 8.6-10.3 Total Protein 7.3 g/dL N 6.4-8.9 Albumin 4.5 g/dL N 3.2-5.2 Globulin 2.8 g/dL N 2-4 Albumin/Globulin Ratio 1.6 N 1-3 Total Bilirubin 0.50 mg/dL N 0.2-1.0 Alkaline Phosphatase 90 U/L N 34-104 Alt 25 U/L N 7-52 Ast 24 U/L N 13-39 Egfr Non- 68.3 >60 Egfr 82.7 >60 1 Lipid Profile 11/13/2018 [facility] Triglycerides 99 mg/dL 2 (Trig/Chol/HDL) [phone] Cholesterol 138 mg/dL 3 HDL Cholesterol 49.1 mg/dL 4 LDL Cholesterol 69 mg/dL 5 Laboratory test 11/13/2018 [facility] TSH (Thyroid 2.45 mcIU/mL N 0.34-5.60 6 finding [phone] Stim Horm) Hemoglobin A1c (Glyco HGB) 7.7 % High 4.0-5.6 7 Flu Test A, B, Or A & B,Binaxn 09/04/2018 In House Lab Influenza A Antigen NEG (607)- - Influenza B Antigen NEG Basic Metabolic 05/29/2018 [facility] Sodium 138 mmol /L N 135-145 Panel [phone] Potassium 4.4 mmol/L N 3.5-5.0 Chloride 100 mmol/L Low 101-111 Co2 Carbon Dioxide 31 mmol/L N 22-32 Anion Gap 7 mmol/L N 2-11 Glucose 152 mg/dL High 70-100 Blood Urea Nitrogen 19 mg/dL N 6-24 Creatinine 1.00 mg/dL N 0.67-1.17 BUN/Creatinine Ratio 19.0 N 8-20 Calcium 9.5 mg/dL N 8.6-10.3 Egfr Non- 75.5 >60 Egfr 91.3 >60 8 Laboratory test 05/29/2018 [facility] Hemoglobin A1c 8.5 % High 4.0-5.6 9 finding [phone] (Glyco HGB) Urine 05/29/2018 [facility] Ur Microalbumin 336.5 Microalbumin [phone] (mg/L) Random Urine Creatinine 183.01 mg/dL Urine Microalbumin/Creatinine 183.8 High <31 CBC Auto Diff 03/27/2018 [facility] White Blood 9.3 10^3/uL N 3.5-10.8 [phone] Count Red Blood Count 4.58 10^6/uL N 4.00-5.40 Hemoglobin 13.7 g/dL Low 14.0-18.0 Hematocrit 41 % Low 42-52 Mean Corpuscular Volume 89 fL N 80-94 Mean Corpuscular Hemoglobin 30 pg N 27-31 Mean Corpuscular HGB Conc 34 g/dL N 31-36 Red Cell Distribution Width 14 % N 10.5-15 Platelet Count 306 10^3/uL N 150-450 Mean Platelet Volume 9.6 um3 N 7.4-10.4 Abs Neutrophils 6.5 10^3/uL N 1.5-7.7 Abs Lymphocytes 1.7 10^3/uL N 1.0-4.8 Abs Monocytes 0.8 10^3/uL N 0-0.8 Abs Eosinophils 0.2 10^3/uL N 0-0.6 Abs Basophils 0.1 10^3/uL N 0-0.2 Abs Nucleated RBC 0 10^3/uL Granulocyte % 69.7 % N 38-83 Lymphocyte % 18.6 % Low 25-47 Monocyte % 9.1 % High 0-7 Eosinophil % 1.9 % N 0-6 Basophil % 0.7 % N 0-2 Nucleated Red Blood Cells % 0 Comp Metabolic Panel 03/27/2018 [facility] Sodium 138 mmol/L N 135-145 [phone] Potassium 4.7 mmol/L N 3.5-5.0 Chloride 102 mmol/L N 101-111 Co2 Carbon Dioxide 28 mmol/L N 22-32 Anion Gap 8 mmol/L N 2-11 Glucose 130 mg/dL High 70-100 Blood Urea Nitrogen 26 mg/dL High 6-24 Creatinine 0.98 mg/dL N 0.67-1.17 BUN/Creatinine Ratio 26.5 High 8-20 Calcium 9.4 mg/dL N 8.6-10.3 Total Protein 7.3 g/dL N 6.4-8.9 Albumin 4.3 g/dL N 3.2-5.2 Globulin 3.0 g/dL N 2-4 Albumin/Globulin Ratio 1.4 N 1-3 Total Bilirubin 0.40 mg/dL N 0.2-1.0 Alkaline Phosphatase 102 U/L N 34-104 Alt 27 U/L N 7-52 Ast 30 U/L N 13-39 Egfr Non- 77.2 >60 Egfr 93.5 >60 10 Lipid Profile 03/27/2018 [facility] Triglycerides 170 mg/dL 11 (Trig/Chol/HDL) [phone] Cholesterol 206 mg/dL 12 HDL Cholesterol 49.6 mg/dL 13 LDL Cholesterol 122 mg/dL 14 Laboratory test 03/27/2018 [facility] TSH (Thyroid 2.46 mcIU/mL N 0.34-5.60 15 finding [phone] Stim Horm) Hemoglobin A1c (Glyco HGB) 8.8 % High 4.0-5.6 16 Laboratory test 10/20/2017 [facility] Hemoglobin A1c 10.3 % High 4.0-5.6 17 finding [phone] Comp Metabolic 10/20/2017 [facility] Sodium 136 Low 139-145 Panel [phone] mmol/L Potassium 4.2 mmol/L N 3.5-5.0 Chloride 98 mmol/L Low 101-111 Co2 Carbon Dioxide 28 mmol/L N 22-32 Anion Gap 10 mmol/L N 2-11 Glucose 215 mg/dL High 70-100 Blood Urea Nitrogen 15 mg/dL N 6-24 Creatinine 0.86 mg/dL N 0.67-1.17 BUN/Creatinine Ratio 17.4 N 8-20 Calcium 9.1 mg/dL N 8.6-10.3 Total Protein 7.2 g/dL N 6.4-8.9 Albumin 4.2 g/dL N 3.2-5.2 Globulin 3.0 g/dL N 2-4 Albumin/Globulin Ratio 1.4 N 1-3 Total Bilirubin 0.70 mg/dL N 0.2-1.0 Alkaline Phosphatase 80 U/L N 34-104 Alt 17 U/L N 7-52 Ast 20 U/L N 13-39 Egfr Non- 90.1 >60 Egfr 115.9 >60 18 CBC Auto Diff 10/20/2017 [facility] White Blood 5.4 10^3/uL N 3.5-10.8 [phone] Count Red Blood Count 4.51 10^6/uL N 4.0-5.4 Hemoglobin 13.3 g/dL Low 14.0-18.0 Hematocrit 39 % Low 42-52 Mean Corpuscular Volume 87 fL N 80-94 Mean Corpuscular Hemoglobin 29 pg N 27-31 Mean Corpuscular HGB Conc 34 g/dL N 31-36 Red Cell Distribution Width 14 % N 10.5-15 Platelet Count 293 10^3/uL N 150-450 Mean Platelet Volume 9.2 um3 N 7.4-10.4 Abs Neutrophils 3.1 10^3/uL N 1.5-7.7 Abs Lymphocytes 1.5 10^3/uL N 1.0-4.8 Abs Monocytes 0.6 10^3/uL N 0-0.8 Abs Eosinophils 0.2 10^3/uL N 0-0.6 Abs Basophils 0.1 10^3/uL N 0-0.2 Abs Nucleated RBC 0 10^3/uL Granulocyte % 56.6 % N 38-83 Lymphocyte % 27.9 % N 25-47 Monocyte % 11.3 % High 0-7 Eosinophil % 3.1 % N 0-6 Basophil % 1.1 % N 0-2 Nucleated Red Blood Cells % 0 Flu Test A, B, Or A & B,Binaxn 08/23/2017 In House Lab Influenza A Antigen neg (607)- - Influenza B Antigen neg Laboratory test 04/09/2017 [facility] Hemoglobin A1c 10.3 % High Less 19 finding [phone] (Glyco HGB) than 6.0 CBC Auto Diff 02/23/2017 [facility] White Blood 7.9 N 3.5-10.8 [phone] Count 10^3/uL Red Blood Count 4.73 10^6/uL N 4.0-5.4 Hemoglobin 14.1 g/dL N 14.0-18.0 Hematocrit 43 % N 42-52 Mean Corpuscular Volume 90 fL N 80-94 Mean Corpuscular Hemoglobin 30 pg N 27-31 Mean Corpuscular HGB Conc 33 g/dL N 31-36 Red Cell Distribution Width 13 % N 10.5-15 Platelet Count 262 10^3/uL N 150-450 Mean Platelet Volume 10 um3 N 7.4-10.4 Abs Neutrophils 4.8 10^3/uL N 1.5-7.7 Abs Lymphocytes 2.0 10^3/uL N 1.0-4.8 Abs Monocytes 0.8 10^3/uL N 0-0.8 Abs Eosinophils 0.2 10^3/uL N 0-0.6 Abs Basophils 0.1 10^3/uL N 0-0.2 Abs Nucleated RBC 0.02 10^3/uL N Granulocyte % 61.0 % N 38-83 Lymphocyte % 25.5 % N 25-47 Monocyte % 9.6 % High 1-9 Eosinophil % 3.1 % N 0-6 Basophil % 0.8 % N 0-2 Nucleated Red Blood Cells % 0.3 N Comp Metabolic Panel 02/23/2017 [facility] Sodium 137 mmol/L N 133-145 [phone] Potassium 4.2 mmol/L N 3.5-5.0 Chloride 102 mmol/L N 101-111 Co2 Carbon Dioxide 28 mmol/L N 22-32 Anion Gap 7 mmol/L N 2-11 Glucose 207 mg/dL High 70-100 Blood Urea Nitrogen 20 mg/dL N 6-24 Creatinine 0.92 mg/dL N 0.67-1.17 BUN/Creatinine Ratio 21.7 High 8-20 Calcium 9.5 mg/dL N 8.6-10.3 Total Protein 7.7 g/dL N 6.4-8.9 Albumin 4.4 g/dL N 3.2-5.2 Globulin 3.3 g/dL N 2-4 Albumin/Globulin Ratio 1.3 N 1-3 Total Bilirubin 0.40 mg/dL N 0.2-1.0 Alkaline Phosphatase 115 U/L High 34-104 Alt 27 U/L N 7-52 Ast 24 U/L N 13-39 Egfr Non- 83.6 N >60 Egfr 107.6 N >60 20 Lipid Profile 02/23/2017 [facility] Triglycerides 163 mg/dL N 21 (Trig/Chol/HDL) [phone] Cholesterol 198 mg/dL N 22 HDL Cholesterol 43.4 mg/dL N 23 LDL Cholesterol 122 mg/dL N 24 Laboratory test 02/23/2017 [facility] TSH (Thyroid 2.38 mcIU/mL N 0.34-5.60 25 finding [phone] Stim Horm) Hemoglobin A1c (Glyco HGB) 11.0 % High Less than 6.0 26 PSA Screening 1.141 ng/mL N 0-4.000 27 1 Because ethnic data is not always readily [...] 15-29 5 Kidney failure <15 (or dialysis) 2 Desirable: <150 Borderline High: 150-199 High: 200-499 Very High: >500 3 Desirable: <200 Borderline High: 200-239 High: >239 4 Low: <40 Desirable: 40-60 High: >60 5 Desirable: <100 Near Optimal: 100-129 Borderline High: 130-159 High: 160-189 Very High: >189 6 [id number] Therapeutic target for the treatment of diabetes mellitus patients is <7% HBA1C, and in selective patients <6.0%. Please refer to [employer] diabetic care guidelines for further information. 8 Because ethnic data is not always readily [...] 15-29 5 Kidney failure <15 (or dialysis) 9 Therapeutic target for the treatment of diabetes mellitus patients is <7% HBA1C, and in selective patients <6.0%. Please refer to [employer] diabetic care guidelines for further information. 10 Because ethnic data is not always readily [...] 15-29 5 Kidney failure <15 (or dialysis) 11 Desirable: <150 Borderline High: 150-199 High: 200-499 Very High: >500 12 Desirable: <200 Borderline High: 200-239 High: >239 13 Low: <40 Desirable: 40-60 High: >60 14 Desirable: <100 Near Optimal: 100-129 Borderline High: 130-159 High: 160-189 Very High: >189 15 [id number] Therapeutic target for the treatment of diabetes mellitus patients is <7% HBA1C, and in selective patients <6.0%. Please refer to [employer] diabetic care guidelines for further information. 17 Therapeutic target for the treatment of diabetes mellitus patients is <7% HBA1C, and in selective patients <6.0%. Please refer to [employer] diabetic care guidelines for further information. 18 Because ethnic data is not always readily [...] 15-29 5 Kidney failure <15 (or dialysis) 19 Therapeutic target for the treatment of diabetes Mellitus patients is <7% HBA1C, and in selective patients <6.0%.Please refer to [employer] Diabetic care guidelines for further information. 20 Because ethnic data is not always readily [...] 15-29 5 Kidney failure <15 (or dialysis) 21 Desirable <150 Borderline high 150-199 High 200-499 Very High >500 22 Desirable <200 Borderline high 200-239 High >239 23 Low <40 Desirable: 40-60 High: >60 24 Desirable: <100 mg/dL Near Optimal: 100-129 mg/dL Borderline High: 130-159 mg/dL High: 160-189 mg/dL Very High: >189 mg/dL 25 [id number] 26 Therapeutic target for the treatment of diabetes Mellitus patients is <7% HBA1C, and in selective patients <6.0%.Please refer to [employer] Diabetic care guidelines for further information. 27 Serum levels of PSA measured using the Anival Hitchita DXI Hybritech immunoassay should not be interpreted as absolute evidence of the presence or absence of disease. The PSA value should be used in conjunction with other pertinent clinical diagnostic procedures. The values obtained with different assay methods or kits cannot be used interchangeably. Procedures Date Code Description Status 11/13/2018 36362 EKG, at Least 12 Leads w/Interpretation and Report Completed 03/27/2018 54255 EKG, at Least 12 Leads w/Interpretation and Report Completed Encounters Type Date Location Provider Dx Diagnosis [facility] J06.9 Acute upper 3:45p Storm, AGITATOR OPERATOR-C respiratory infection, unspecified Office Visit 08/21/2018 [facility] [place] R. I10 Essential (primary ) 4:30p Storm, AGITATOR OPERATOR-C hypertension Office Visit 07/03/2018 [facility] [place] R. I10 Essential (primary ) 4:30p Storm, AGITATOR OPERATOR-C hypertension Office Visit 05/29/2018 [facility] [place] R. E11.65 Type 2 diabetes 4:15p Storm, AGITATOR OPERATOR-C mellitus with hyperglycemia I10 Essential (primary) hypertension Office Visit 03/27/2018 [facility] [place] R. E11.65 Type 2 diabetes 4:15p Storm, AGITATOR OPERATOR-C mellitus with hyperglycemia R60.9 Edema, unspecified Office Visit 10/25/2017 4:00p Main Office [place] R. E11.65 Type 2 diabetes Storm, AGITATOR OPERATOR-C mellitus with hyperglycemia I80.00 Phlbts and thombophlb of superfic vessels [facility] M77.12 Lateral epicondylitis, left elbow Z23 Encounter for immunization Office Visit 10/01/2017 4:00p Main Office Nicole Dodson, M79.662 Pain in left TELECOM FIELD TECHNICIAN lower leg I10 Essential (primary) hypertension Office Visit 09/11/2017 11:15a Main Office Nicole M79.662 Pain in left lower Shortle, TELECOM FIELD TECHNICIAN leg Office Visit 09/03/2017 10:30a Main Office Nicole J18.9 Pneumonia, Shortle, TELECOM FIELD TECHNICIAN unspecified organism I10 Essential (primary) hypertension Office Visit 08/27/2017 2:30p Main Office Jad Gaspar18.9 Pneumonia, TELECOM FIELD TECHNICIAN unspecified organism Office Visit 08/23/2017 11:15a Main Office Jad Gaspar06.9 Acute upper TELECOM FIELD TECHNICIAN respiratory infection, unspecified Office Visit 08/09/2017 4:00p Main Office Lucy King J18.9 Pneumonia, AGITATOR OPERATOR-C unspecified organism E11.65 Type 2 diabetes mellitus with hyperglycemia Office Visit 04/09/2017 2:15p Main Office Lucy Garzon M54.12 Radiculopathy , Storm, AGITATOR OPERATOR-C cervical region E11.65 Type 2 diabetes mellitus with hyperglycemia Office Visit 02/23/2017 3:00p Main Office Lucy King, Z00.00 Encntr for general AGITATOR OPERATOR-C adult medical exam w/o abnormal findings E11.65 Type 2 diabetes mellitus with hyperglycemia R51 Headache M54.12 Radiculopathy, cervical region Z23 Encounter for immunization Plan of Treatment 11/13/2018 - ANIBAL Acharya-CZ01.818 Encounter for other preprocedural examinationComments:medically stable for planned xkkxifsrhM78.12 Radiculopathy, cervical region
--- NOTE | 2018-12-09 15:23 | ED ---
Throat Pain/Nasal Congestion - HPI Summary HPI Summary: Patient post ACDF 12/[address] Hernandez complains of being unable to tolerate by mouth intake including fluids and medications, and increase in pain 2 days. Patient states he swallows food or fluid, but feels that it doesn't go all the way down and then he starts to cough and it just comes right back up. Patient was discharged Sunday, able to tolerate small bites of food at that time, states symptoms started to get worse on Sunday. Also complains of headache and inability to have bowel movement since surgery. Patient denies fever CP, SOB, nausea, diarrhea, abdominal pain, change in urine, change in BM. Medical history is DM, HTN, HDL. - History of Current Complaint Chief Complaint: EDNeckComplaint Time Seen by Provider: 12/09/18 15:06 Hx Obtained From: Patient Onset/Duration: Gradual Onset, Lasting Days Severity: Moderate Associated Signs And Symptoms: Positive: Dysphagia - Allergies/Home Medications Allergies/Adverse Reactions: Allergies Allergy/AdvReac Type Severity Reaction Status Date / Time hydrocodone Allergy Nausea And Verified 12/09/18 14:45 Vomiting Home Medications: Home Medications Insulin ASPART (NF) [Novolog (NF)] 20 unit SUBCUT BID 12/09/18 [History Confirmed 12/09/18] Insulin ASPART (NF) [Novolog (NF)] 24 units SUBCUT QPM 12/09/18 [History Confirmed 12/09/18] Insulin Detemir [Levemir Flextouch] 30 unit SUBCUT QAM 12/09/18 [History Confirmed 12/09/18] Insulin Detemir [Levemir Flextouch] 50 unit SUBCUT BEDTIME 12/09/18 [History Confirmed 12/09/18] Lisinopril TAB* [Prinivil TAB*] 20 mg PO BEDTIME 12/09/18 [History Confirmed ] LoraTADine TAB(NF) [Claritin 10 MG TAB(NF)] 10 mg PO DAILY 12/09/18 [History Confirmed 12/09/18] Multivitamins/Minerals TAB* [Theragran/minerals TAB*] 1 tab PO DAILY 12/09/18 [ History Confirmed 12/09/18] Pravastatin (NF) [Pravachol (NF)] 20 mg PO BEDTIME 12/09/18 [History Confirmed 12/09/18] PMH/Surg Hx/FS Hx/Imm Hx Endocrine/Hematology History: Reports: Hx Diabetes - Type 2 Cardiovascular History: Reports: Hx Hypertension Denies: Hx Pacemaker/ICD History: Denies: Hx Renal Disease Sensory History: Reports: Hx Contacts or Glasses - rading Denies: Hx Hearing Aid Opthamlomology History: Reports: Hx Contacts or Glasses - rading EENT History: Denies: Hx Deafness Neurological History: Reports: Hx Nerve Disease - possible DM neuropathy, Other Neuro Impairments/Disorders Psychiatric History: Denies: Hx Autism, Hx Panic Disorder - Cancer History Hx Chemotherapy: No - Surgical History Surgery Procedure, Year, and Place: 1957-APPENDECTOMY Hx Anesthesia Reactions: No Infectious Disease History: No Infectious Disease History: Denies: Traveled Outside the [place] in Last 30 Days - Family History Known Family History: Positive: Non-Contributory - Social History Alcohol Use: Weekly Substance Use Type: Reports: None Smoking Status (MU): Former Smoker Amount Used/How Often: 1ppd Review of Systems Constitutional: Negative Eyes: Negative ENT: Other Cardiovascular: Negative Respiratory: Negative Gastrointestinal: Negative Genitourinary: Negative Musculoskeletal: Negative Skin: Negative Positive: Headache Psychological: Normal All Other Systems Reviewed And Are Negative: Yes Physical Exam - Summary Physical Exam Summary: Patient in c-collar status post ACDF. Triage Information Reviewed: Yes Vital Signs On Initial Exam: Initial Vitals Temp Pulse Resp BP Pulse Ox 98.6 F 104 18 124/81 95 12/09/18 14:43 12/09/18 14:43 12/09/18 14:43 12/09/18 14:43 12/09/18 14:43 Vital Signs Reviewed: Yes Appearance: Positive: Well-Appearing Skin: Positive: Warm Head/Face: Positive: Normal Head/Face Inspection Eyes: Positive: Normal Respiratory/Lung Sounds: Positive: Clear to Auscultation Cardiovascular: Positive: Normal Abdomen Description: Positive: Nontender Musculoskeletal: Positive: Normal Neurological: Positive: Normal Psychiatric: Positive: Normal AVPU Assessment: Alert - Ana M Coma Scale Best Eye Response: 4 - Spontaneous Best Motor Response: 6 - Obeys Commands Best Verbal Response: 5 - Oriented Coma Scale Total: 15 Diagnostics - Vital Signs Vital Signs Temp Pulse Resp BP Pulse Ox 12/09/18 14:43 98.6 F 104 18 124/81 95 - Laboratory Result Diagrams: 12/09/18 17:08 12/09/18 17:08 Lab Statement: Any lab studies that have been ordered have been reviewed, and results considered in the medical decision making process. EENT Course/Dx - Course Course Of Treatment: Patient post ACDF 12/[address] Hernandez complains of being unable to tolerate by mouth intake including fluids and medications, and increase in pain 2 days. Patient states he swallows food or fluid, but feels that it doesn't go all the way down and then he starts to cough and it just comes right back up. Patient was discharged Sunday, able to tolerate small bites of food at that time, states symptoms started to get worse on Sunday. Also complains of headache and inability to have bowel movement since surgery. Patient denies fever CP, SOB, nausea, diarrhea, abdominal pain, change in urine , change in BM. Medical history is DM, HTN, HDL. Physical exam:Patient in c- collar status post ACDF. Vital signs within normal limits. PA for Dr. Jaime called to request lateral view cervical spine x-ray and steroids for patient if issue appears to be swelling. Vital signs within normal limits. Labs unremarkable. Discussed patient with Dr. Jaime who recommends admission for observation and IV fluids for hydration as patient cannot tolerate by mouth. Also recommended Decadron 10 mg IV, patient be kept nothing by mouth, hold daily aspirin, and repeat x-ray in the morning with gastrography. Admitted to hospitalist. - Diagnoses Provider Diagnoses: Unable to eat Discharge - Sign-Out/Discharge Documenting (check all that apply): Patient Departure Patient Received Moderate/Deep Sedation with Procedure: No - Discharge Plan Condition: Stable Disposition: HOME - Billing Disposition and Condition Condition: STABLE Disposition: Home
[2018-12-09] MEDS ORDERED: NS 0.9% 1000 ML** 1,000 ML IV ONE (15:46)
[2018-12-09] MEDS ORDERED: Acetaminophen IV 1GM/100ML * 100 ML IVPB ONE (16:00)
[2018-12-09 17:18] LABS: ABS Basophils 0.1 10^3/ul (0-0.2); ABS Eosinophils 0.1 10^3/ul (0-0.6); ABS Lymphocytes 1.3 10^3/ul (1.0-4.8); ABS Neutrophils 6.4 10^3/ul (1.5-7.7); Eosinophil % 1.1 %; Hematocrit 43 % (42-52); Hemoglobin 14.1 g/dL (14.0-18.0); Lymphocyte % 15.1 %; Mean Corpuscular HGB Conc 33 g/dL (31-36); Mean Corpuscular Hemoglobin 30 pg (27-31); Mean Corpuscular Volume 90 fL (80-94); Mean Platelet Volume 8.2 fL (7.4-10.4); Nucleated Red Blood Cells % 0.1; Platelet Count 345 10^3/uL (150-450); Red Blood Count 4.76 10^6 /uL (4.18-5.48); Red Cell Distribution Width 14 % (10.5-15); White Blood Count 8.9 10^3/uL (3.5-10.8)
[2018-12-09 17:34] LABS: Albumin/Globulin Ratio 1.1 (1-3); BUN/Creatinine Ratio 32.3 (8-20); Calcium 8.9 mg/dL (8.6-10.3); EGFR African American 92.4 (>60); EGFR Non-African American 76.3 (>60); Globulin 3.5 g/dL (2-4); Potassium 4.6 mmol/L (3.5-5.0); Total Bilirubin 0.7 mg/dL (0.2-1.0); Total Protein 7.5 g/dL (6.4-8.9)
[2018-12-09] MEDS ORDERED: Iodixanol* (CONTRAST) 320 MG/ML 100 ML SDV IV ONE (17:46)
[2018-12-09] MEDS ORDERED: Dexamethasone IV* 4 MG/ML 5 ML VIAL (20 MG) IVPB ONE (21:02)
[2018-12-09 21:54] LABS: INR 1.26 (0.82-1.09)
[2018-12-09] MEDS ORDERED: Ondansetron INJ* 2 MG/ML VIAL IV PRN (22:20)
[2018-12-09] MEDS ORDERED: hydrALAZINE IV* 20 MG/ML VIAL IV SLOW PU PRN (22:24)
[2018-12-09] MEDS ORDERED: Dextrose 50% Syringe 50 ML* 25 GM/50 ML SYRINGE IV PUSH PRN (22:24)
[2018-12-09] MEDS ORDERED: NS 0.9% 1000 ML** 1,000 ML IV SCH ×2 (22:30)
[2018-12-09] MEDS ORDERED: Pantoprazole IV* 40 MG IV SCH (23:00)
[2018-12-10] MEDS ORDERED: Acetaminophen IV 1GM/100ML * 100 ML IVPB SCH
[2018-12-10] MEDS: Morphine INJ* 2 MG/ML 1 ML SYRINGE (TWO MG - NEW SYRINGE VERSION) IV PRN ×2 (01:00→05:49)
--- NOTE | 2018-12-10 02:10 | CONS ---
CONSULTATION REPORT: DATE OF ADMISSION: 12/09/18 PRIMARY CARE PROVIDER: Lucy Finley NP. NEUROSURGEON: Dr. Sarah Ruff. ATTENDING PHYSICIAN: Dr. Kamila Harden (dictated by TONYA Martins). CHIEF COMPLAINT: 1. Difficulty swallowing. 2. Postop day 5 status post cervical diskectomy with C5 to C6, C6 to C7 fusion. HISTORY OF PRESENT ILLNESS: Mr. Saleh is a 63-year-old male with past medical history of cervical radiculopathy, diabetes mellitus, hypertension, hyperlipidemia who presented to the ER today with complaints of progressive difficulty swallowing. He had a cervical diskectomy with fusion on 12/04/18. He was discharged in good health, having successfully eaten and drank without difficulty. He was seen today. His is at the bedside. He notes that he has had difficulty eating and drinking times approximately 3 days, stating that every time he attempts, it leads to coughing. He notes that this has been worse today than in the past 3 days. Because of this, he has decreased oral intake. He notes a foreign body sensation on the right anterior neck. He again notes difficulty swallowing. He feels that he has a hoarseness of voice. The right area is spinning frame tender to palpation. The patient denies chest pain, shortness of breath, or difficulty breathing. He denies headache, vision changes, abdominal pain, nausea, vomiting, or diarrhea. He notes that his last bowel movement was approximately 4 days ago. He denies pain in the lower extremities, although he does note numbness and tingling in bilateral upper and lower extremities that he has had for years and there has been no change. While in the emergency room, the patient received a full workup, which included cervical spine x-ray, neck CT, and blood work. He was given 1 L normal saline, Decadron 10 mg, acetaminophen IV. The patient experienced adequate pain relief with IV acetaminophen. The hospitalist team was asked to consult on the patient. PAST SURGICAL HISTORY: Anterior cervical diskectomy with C5-C6, C6-C7 fusion, 12/04/18. Appendectomy. HOME MEDICATIONS: 1. Cholecalciferol 2000 units p.o. q.a.m. 2. Empagliflozin 10 mg p.o. at bedtime. 3. Ezetimibe 10 mg p.o. at bedtime. 4. Insulin aspart a.c. 20 units breakfast and lunch, 24 units a.c. dinner. 5. Insulin detemir 30 units subcu q.a.m., insulin detemir 50 units subcu q.p.m. 6. Lisinopril 20 mg p.o. at bedtime. 7. Loratadine 10 mg p.o. daily. 8. Multivitamin/minerals 1 tab p.o. daily. 9. Pravastatin 20 mg p.o. at bedtime. ALLERGIES: HYDROCODONE leads to nausea and vomiting. FAMILY HISTORY: The patient relates a family history positive for diabetes mellitus, aneurysmal stroke. He denies family history of heart disease or cancer. SOCIAL HISTORY: The patient does not smoke. He has a previous 21-whli-dmou smoking history. He states that he drinks 4 to 6 alcoholic drinks a week. The patient is . He lives with his . 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 REVIEW OF SYSTEMS: A 10-point review of systems was performed and all the pertinent positives and negatives are in the HPI. All other systems are negative. PHYSICAL EXAMINATION: General: Mr. Saleh is a well-developed, well-nourished , obese 63-year-old male who is sitting up in bed. He has a C-spine collar in place. He appears to be in no acute distress. He is cooperative and appropriate and able to carry on a conversation. Vital Signs: Temperature 98.6 temporal, heart rate 96, respiratory rate 24, oxygen saturation 94% on room air, blood pressure 167/91. HEENT: Visual martines are grossly intact. PERRL. Extraocular movements intact. Sclerae are without icterus. Hearing is grossly intact. Oral mucous membranes are moist. There are no lesions. The pharynx is clear. Neck: The patient has cervical collar in place. There is an incision on the right anterior neck that has no ecchymosis. There is no drainage from the site. A clean, dry, intact dressing is in place. The trachea is at midline. Cardiovascular: Regular rate and rhythm with S1, S2 present. No murmurs, rubs, clicks, or gallops. There is no JVD. Respiratory: Symmetrical chest expansion without the use of accessory muscles. The lungs are clear to auscultation bilaterally without wheeze, rhonchi, or rubs. Abdomen is obese. Bowel sounds are hypoactive in all quadrants. The abdomen is nontender to palpation. Extremities: Skin is warm and smooth bilaterally. There is no clubbing, cyanosis, or edema. Radial and pedal pulses are palpable. The patient is able to move all of his extremities. Neuro: The patient is awake. He is alert and oriented x3. Cranial nerves grossly intact. He is able to move all of his extremities. Sensation: Intact. DIAGNOSTIC STUDIES/LABORATORY DATA: Cervical spine x-ray, 12/09/18, impression : The radiographic appearance is concerning for hematoma or potentially an inflammatory process with the prevertebral soft tissue. Correlate with clinical assessment and consider contrast-enhanced CT of the neck for extra further assessment. CT neck, 12/09/18, impression: Status post anterior C5 to C7 fusion. Retropharyngeal fluid collection extending from C1 to C7, containing 2 small foci of air corresponding to abnormality on plain film. This likely represents postsurgical seroma or hematoma. Abscess is considered much less likely given lack of rim enhancement and short timeframe since surgery. Recommend radiographic followup as clinically indicated. Evaluation of the C5 to C7 levels is limited by streak artifact from surgical hardware. ASSESSMENT AND PLAN: Mr. Saleh is a 63-year-old male with a past medical history of cervical spine diskectomy with fusion of C5 to C7, diabetes mellitus , hypertension, hyperlipidemia who presents to the ER today with complaints of difficulty swallowing and swelling in the neck. CT suggests edema versus hematoma. Dr. Ruff has been consulted. He is less concerned for hematoma , but would like to continue to monitor the patient. The patient will be admitted inpatient for: 1. Difficulty swallowing. The patient is postop day 5 from cervical diskectomy with fusion. Dr. Ruff has agreed to admit the patient. He has recommended the following: N.p.o. with normal saline IV fluids. The patient's activity will be out of bed with assistance, elevate head of bed 60 to 70 degrees at all times. Lateral C- spine x-ray daily, neuro checks q.4 hours. The patient will be placed on pain management. He tolerated Tylenol well. This will be continued. Morphine also ordered p.r.n. for severe pain. The patient will be started on Decadron 4 mg q.6 hours x1 day and then taper off. 2. Diabetes mellitus. The patient has 3 days of decreased PO intake. Blood sugar at admission is in the 90's. The patient's home medications will be held. His blood sugar is controlled on arrival. He will be started on sliding scale lispro a.c. and h.s. There will likely be a need to add back basal insulin coverage as he will be continued on steroids for a few days. 3. Hypertension in the setting of n.p.o. The patient's lisinopril will be held in the setting of n.p.o. He will be placed on hydralazine q.6 hours p.r.n. if blood pressure greater than 160. 4. Hyperlipidemia. Zetia and pravastatin will be held for the time being. 5. Code status. Full code. 6. DVT prophylaxis. According to the DVT risk assessment, the patient scores 2 and is placed in the moderate-risk category. He will be placed on SCDs as there is some concern that he may have a hematoma. TIME SPENT: Approximately 35 minutes were spent on this consultation; greater than half of that time was spent with the patient and his obtaining history , performing physical, and reviewing the plan of care. The case has been reviewed with my attending, Dr. Harden, who is in agreement with the plan of care. TONYA KEANE [id number]/[facility] #: [id number] MTDD
--- NOTE | 2018-12-10 02:43 | HP ---
HISTORY AND PHYSICAL: DATE OF ADMISSION: 12/09/18 HISTORY OF PRESENT ILLNESS: The patient is a very pleasant 63-year-old right- handed gentleman with a history of diabetes, hypertension, who is status post an anterior cervical diskectomy and fusion at C5-C6 and C6-C7 level on 12/05/18. The patient tolerated the procedure well and was able to be discharged home, and he returns today with 1-day duration of worsening of difficulty swallowing. The patient reports that he started experiencing difficulty with swallowing. He has no difficulty breathing, he has no difficulty with his speech. He reports that he has some mild neck pain. He denies any drainage from the wound, he denies any fever; denies any coughing; denies any new weakness, numbness, or tingling of these extremities. The patient has a history of baseline cervical spondylotic myelopathy, axial neck pain and radiculopathy as well as peripheral neuropathy. The patient has baseline weakness to the left upper extremity. Upper extremity dexterity is slightly decreased. He has difficulty handing coins or papers in his upper extremities. He does have numbness in both upper extremities with left being worse than the right as well as lower extremity numbness below his knee. He does have difficulty with his ability to ambulate and his balance. The patient denies any urinary or GI incontinence. The patient is , lives with his who accompanies him at this visit. 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 He has no children. PAST MEDICAL HISTORY: The patient has a history of diabetes, hypertension, history of cataracts, peripheral neuropathy. PAST SURGICAL HISTORY: Appendectomy and anterior cervical diskectomy and fusion. MEDICATIONS: Medication at the patient's home was aspirin. The patient reports that he stopped aspirin 7 days prior to the procedure and has not resumed it since the procedure. The patient is on: 1. Insulin. 2. Lisinopril. 3. Loratadine. 4. Multivitamin. 5. Pravastatin. ALLERGIES: The patient is allergic to HYDROCODONE. FAMILY HISTORY: Noncontributory. SOCIAL HISTORY: Tobacco negative. Alcohol occasionally. Recreational drug use negative. PHYSICAL EXAMINATION GENERAL: The patient is in no acute distress. He is tolerating [place] J-collar well. His wound is soft and intact, healing very well, no evidence of hematoma. He is awake, alert, and oriented. HEENT: His pupils are equal and reactive. Cranial nerves II through XII grossly intact. NECK: Trachea is midline. The patient is able to breathe and talk without difficulty. NEUROLOGIC: Motor is 4 to 5/5 in all extremities with the exception of the left upper extremity which is 4-/5. The patient does have baseline atrophy of his thenar and hypothenar on the left. Sensory is grossly intact to light touch with the exception of the left upper extremity from his elbow, all the way down to his fingers. He has decreased sensation on the right upper extremity on the last 1-1/2 digits and also of both lower extremities below his knees, this is baseline since prior to surgery. Deep tendon reflex +1 bilaterally. No clonus, no Babinski. Ibrahim's negative. Straight leg raise test negative in sitting position. The patient has Tinel's sign especially along the left median nerve percussion at the wrist and the left ulnar nerve at the elbow. IMAGING: The patient had an x-ray of the cervical spine revealing good placement of hardware with alignment of the cervical spine. There is prevertebral soft tissue edema that is increased compared to his postoperative x -ray. The patient had a CT scan of his cervical spine revealing postoperative changes with good placement of the hardware. There is prevertebral soft tissue edema versus hematoma versus seroma in the operative site. There is no tracheal deviation or midline shift. ASSESSMENT: Mr. Delfino Alexis is a 63-year-old right-handed gentleman with history of diabetes and hypertension with baseline cervical spondylotic myelopathy, radiculopathy, and peripheral neuropathy, who is status post anterior cervical diskectomy and fusion on 12/05/18 with complaints of difficulty swallowing and imaging findings consistent with prevertebral soft tissue edema. PLAN: The patient at this point is doing quite well. Because of his difficulty swallowing and imaging findings, we would like to admit the patient for observation and for IV fluid hydration. We will be happy to give a limited dose of Decadron and also check his glucose. We would like to confirm that there is no evidence of coagulopathy and coagulation studies were ordered in the emergency room. We will be happy also to obtain Gastrografin esophagogram in the morning in order to exclude the remote possibility of esophageal injury. We would like to keep the patient's head elevated at 60 or 70 degrees. The patient will be currently followed by Internal Medicine. Discussed in extent patient's findings as well as plan with the patient and his who are agreeable with the plan. Thanks for allowing us to participate in the care of this patient, please do not hesitate to call our office in case you have any further questions or concerns regarding the care of this patient. [id number]/[facility] #: [id number] MTDD
[2018-12-10] MEDS: Dexamethasone IV* 4 MG/ML 1 ML (4 MG) IV SLOW PU SCH ×3 (05:49→20:16)
[2018-12-10 06:56] LABS: ABS Lymphocytes 0.8 10^3/ul (1.0-4.8); ABS Monocytes 0.1 10^3/ul (0-0.8); ABS Neutrophils 6.6 10^3/ul (1.5-7.7); Hematocrit 43 % (42-52); Hemoglobin 14.2 g/dL (14.0-18.0); Lymphocyte % 10.1 %; Mean Corpuscular HGB Conc 33 g/dL (31-36); Mean Corpuscular Hemoglobin 30 pg (27-31); Mean Corpuscular Volume 90 fL (80-94); Mean Platelet Volume 8.2 fL (7.4-10.4); Nucleated Red Blood Cells % 0.1; Platelet Count 364 10^3/uL (150-450); Red Cell Distribution Width 14 % (10.5-15); White Blood Count 7.4 10^3/uL (3.5-10.8)
[2018-12-10 07:12] LABS: BUN/Creatinine Ratio 36.3 (8-20); Calcium 8.8 mg/dL (8.6-10.3); EGFR African American 79.3 (>60); EGFR Non-African American 65.5 (>60); Potassium 4.9 mmol/L (3.5-5.0)
[2018-12-10] MEDS ORDERED: Insulin LISPRO* 1 UNITS UNIT SUBCUT SCH (07:30)
[2018-12-10] MEDS: Docusate CAP* 100 MG PO SCH (08:09)
[2018-12-10] MEDS: Senna TAB PO SCH ×2 (08:09→21:33)
[2018-12-10] MEDS ORDERED: NS 0.9% 500 ML* 500 ML IV ONE (09:48)
[2018-12-10] MEDS ORDERED: Insulin REGULAR(*) 1 UNITS UNIT IV PUSH STA (09:52)
[2018-12-10] MEDS ORDERED: Insulin IVPB 100 units/100 ml 100 UNITS/100 ML UNIT IVPB ONE ×3 (09:54→11:53)
[2018-12-10] MEDS ORDERED: NS 0.45% KCl 20 Meq 1000 ML* 1,000 ML IV SCH ×2 (10:00→11:54)
[2018-12-10] MEDS ORDERED: D5W 1/2 NS 1000 ML BAG* 1,000 ML IV SCH (10:00)
[2018-12-10] MEDS ORDERED: D5W 1/2 NS 1000 ML BAG* 1,000 ML IV PRN (10:30)
[2018-12-10 11:06] LABS: Albumin 4.2 g/dL (3.2-5.2); BUN/Creatinine Ratio 33.8 (8-20); Calcium 9.1 mg/dL (8.6-10.3); EGFR African American 67.5 (>60); EGFR Non-African American 55.8 (>60); Globulin 4.1 g/dL (2-4); Potassium 4.9 mmol/L (3.5-5.0); Total Bilirubin 0.6 mg/dL (0.2-1.0); Total Protein 8.3 g/dL (6.4-8.9)
[2018-12-10 11:28] LABS: Urine Appearance Cloudy; Urine Bilirubin Negative (Negative); Urine Blood Negative (Negative); Urine Color Yellow; Urine Glucose 3+(>=500 mg/dL) (Negative); Urine Ketones 2+ (Negative); Urine Nitrite Negative (Negative); Urine Protein Negative (Negative); Urine Specific Gravity 1.023 (1.010-1.030); Urine Urobilinogen Negative (Negative)
[2018-12-10] MEDS ORDERED: D5W 1/2 NS KCl 20 Meq 1000 ML* 1,000 ML IV SCH (12:00)
--- NOTE | 2018-12-10 13:50 | PN ---
Progress Note - Progress Note Date of Service: 12/10/18 SOAP: Subjective: 63 y/o male s/p ACDF at C5/C6, C6/C7 POD x 4 having episode of dysphasia and pain, he was referred to the ER by our office yesterday. Patient had difficulty with swallowing liquids, medications and food after discharge from hospital. He denied fever, chills, but experiences nausea with taking medication. He was admitted to hospital and completed CT imaging of the cervical spine and was given two courses of steroid therapy overnight. Patient feels that his pain throat have improved after treatment. He indicates that his UPE motor strength have improved, but no change in UPE sensation. Since receiving steroid therapy his glucose levels have been elevated. Currently he is being followed by medicine to mange his DM, was placed in ICU with insulin drip to control blood sugar. Patient has otherwise been stable. Objective: Vital Signs 12/10/18 12/10/18 12/10/18 05:49 06:35 07:35 Temperature 98.9 F Pulse Rate 95 Respiratory 20 18 20 Rate Blood Pressure 123/74 (mmHg) O2 Sat by Pulse 95 Oximetry 12/10/18 12/10/18 08:00 11:26 Temperature 98.4 F Pulse Rate 96 Respiratory 18 24 Rate Blood Pressure 136/66 (mmHg) O2 Sat by Pulse 95 Oximetry General: patient laying comfortable in bed, has [place] J collar on Neuro: GCS 15, A&O x 3 CNII - XII intact Motor strength 5/5 bilaterally in all extremities. decreased sensation in UPE bilaterally Assessment: 63 y/o male post ACDF of C5/C6. C6/C7 x 4 days, has fluid collection C1 - C7 documented on CT scan, has not been able to tolerate anything PO, His symptoms are improving after course of steroids, but blood sugars are elevated. Patient is stable at this time Plan: 1) Pain control as needed 2) Follow up Swallow evale with speech therapy 3) Esophagram gram ordered rule out possible damage to esophagus 4) Follow medicine recommendation management of DM
[2018-12-10 15:16] LABS: Albumin 4.1 g/dL (3.2-5.2); Albumin/Globulin Ratio 1.1 (1-3); BUN/Creatinine Ratio 37.6 (8-20); Calcium 9.2 mg/dL (8.6-10.3); EGFR African American 76.2 (>60); Globulin 3.9 g/dL (2-4); Potassium 4.3 mmol/L (3.5-5.0); Total Bilirubin 0.6 mg/dL (0.2-1.0)
--- NOTE | 2018-12-10 17:07 | PN ---
Subjective Date of Service: 12/10/18 Interval History: Pt seen and examined. Meds and labs reviewed. Called by kathy Batista RN in 4N early in AM for critical lab HCO3 = 14. Reviewed data, and pt found to have HAGMA w/delta-delta =1, suggestive of pure HAGMA due to DKA. CC: N/A ROS: Denied VENCES/dizziness, F/C, N/V, CP, SOB, increased cough, sputum production , abd pain, diarrhea, constipation, dysuria, myalgias, arthralgias, throat pain , and new skin lesions. The rest of the 14 point ROS are unremarkable. PHYSICAL EXAM: GEN APPEARANCE: Awake, not in acute distress HEENT: NC/AT, PERRLA, moist oral mucosa, (-) throat erythema NECK: Soft, supple, (-) cervical LAD, (-)JVD HEART: S1S2 WNL, RRR, No MRG CHEST: CTA, BL, GAE, No W/R/R ABD: Soft, ND/NT, NABS 4x Q EXT: No C/C/E SKIN: Warm to touch PSYCH: No active psychosis, hallucinations, depression, SI/HI Objective Active Medications: Dexamethasone Sodium Phosphate (Decadron Iv*) 4 mg IV SLOW PU Q6HR [facility] Last Admin: 12/10/18 15:25 Dose: 4 mg Docusate Sodium (Colace Cap*) 100 mg PO BID [facility] Last Admin: 12/10/18 08:09 Dose: Not Given Famotidine (Pepcid Iv*) 20 mg IV SLOW PU BID [facility] Hydralazine HCl (Apresoline Iv*) 5 mg IV SLOW PU Q6H PRN PRN Reason: Systolic Bp Greater Than: 160 Potassium Chloride/Dextrose (D5w 1/2 Ns Kcl 20 Meq 1000 Ml*) 1,000 mls @ 75 mls /hr IV PER RATE [facility] Last Admin: 12/10/18 11:53 Dose: 75 mls/hr Insulin Human Regular (Insulin Regular Iv Drip 1 Unit/Ml) 100 units in 100 mls @ 11.158 mls/hr IVPB PER RATE ONE Stop: 12/10/18 18:51 Last Admin: 12/10/18 12:45 Dose: 11.158 mls/hr Potassium Chloride/Sodium Chloride (Ns 0.45% Kcl 20 Meq 1000 Ml*) 1,000 mls @ 100 mls/hr IV PER RATE [facility] Stop: 12/12/18 19:59 Morphine Sulfate (Morphine Inj (Syringe))*) 2 mg IV Q4H PRN PRN Reason: PAIN - MILD Last Admin: 12/10/18 05:49 Dose: 2 mg Ondansetron HCl (Zofran Inj*) 4 mg IV Q4H PRN PRN Reason: NAUSEA/VOMITING Senna (Senokot Tab*) 1 tab PO BID [facility] Last Admin: 12/10/18 08:09 Dose: Not Given Vital Signs - 8 hr 12/10/18 12/10/18 12/10/18 11:14 11:26 12:05 Temperature 98.4 F 99.3 F Pulse Rate 92 96 92 Respiratory 24 26 Rate Blood Pressure 116/80 136/66 146/77 (mmHg) O2 Sat by Pulse 95 95 93 Oximetry 12/10/18 12/10/18 12/10/18 12:12 12:30 13:00 Temperature Pulse Rate 95 92 94 Respiratory 19 21 23 Rate Blood Pressure 146/77 (mmHg) O2 Sat by Pulse 93 94 94 Oximetry 12/10/18 12/10/18 12/10/18 13:01 14:00 14:05 Temperature Pulse Rate 92 90 90 Respiratory 23 22 22 Rate Blood Pressure 154/76 141/72 (mmHg) O2 Sat by Pulse 94 91 93 Oximetry 12/10/18 12/10/18 12/10/18 15:07 15:08 15:30 Temperature Pulse Rate 96 98 Respiratory 14 19 15 Rate Blood Pressure 131/84 (mmHg) O2 Sat by Pulse 95 95 Oximetry 12/10/18 12/10/18 12/10/18 16:00 16:14 17:00 Temperature 99 F Pulse Rate 89 86 84 Respiratory 24 23 18 Rate Blood Pressure 143/75 (mmHg) O2 Sat by Pulse 95 94 93 Oximetry Oxygen Devices in Use Now: None Result Diagrams: 12/10/18 06:45 12/10/18 14:03 Assess/Plan/Problems-Billing Assessment: - Patient Problems (1) DKA (diabetic ketoacidoses) Current Visit: Yes Status: Acute Code(s): E11.10 - TYPE 2 DIABETES MELLITUS WITH KETOACIDOSIS WITHOUT COMA SNOMED Code(s): 277853739 Comment: -Transferred pt to ICU to narrow gap and further improve bicarb after appropriate bolus -IVF regimen ordered per serum glucose level -Improved gap and bicarb -For repeat BMP at 1800 -Give Long acting insulin at least 2 hours before planned discontinuation of Insulin gtt once gap is narrowed -Likely induced by IV steroids in the setting of not being on any long acting insulin due to poor PO intake a few days before (2) Dysphagia Current Visit: Yes Status: Acute Code(s): R13.10 - DYSPHAGIA, UNSPECIFIED SNOMED Code(s): 40364320 Comment: -Likely due to pre-vertebral soft tissue edema S/P recent anterior cervical diskektomy and fusion on 12/05/18 -Continue Decadron -Decreased swelling of prevertebral soft tissue via Esophagogram -Consider starting pt on GI soft, low residue diet whe gap has narrowed -Continue watchful waiting (3) GERD (gastroesophageal reflux disease) Current Visit: Yes Status: Acute Code(s): K21.9 - GASTRO-ESOPHAGEAL REFLUX DISEASE WITHOUT ESOPHAGITIS SNOMED Code(s): 529816363 Comment: -Continue Famotidine (4) DVT prophylaxis Current Visit: No Status: Acute Code(s): Z29.9 - ENCOUNTER FOR PROPHYLACTIC MEASURES, UNSPECIFIED SNOMED Code(s): 958540908 Comment: -Pt ambulatory; encourage ambulation ad libitum -Will place pt on YANIV stockings [facility] Status and Disposition: -As above
[2018-12-10 17:16] LABS: BUN/Creatinine Ratio 36.4 (8-20); Calcium 9.2 mg/dL (8.6-10.3); EGFR African American 73.3 (>60); EGFR Non-African American 60.6 (>60); Potassium 4.7 mmol/L (3.5-5.0)
[2018-12-10] MEDS: Famotidine IV* 10 MG/ML 2 ML (20 mg) IV SLOW PU SCH (20:24)
[2018-12-10 21:03] LABS: BUN/Creatinine Ratio 42.3 (8-20); Calcium 8.8 mg/dL (8.6-10.3); EGFR African American 87.3 (>60); EGFR Non-African American 72.1 (>60); Potassium 4.3 mmol/L (3.5-5.0)
[2018-12-10] MEDS ORDERED: Dextrose 50% Syringe 50 ML* 25 GM/50 ML SYRINGE IV PUSH PRN ×2 (21:07→21:08)
[2018-12-10] MEDS ORDERED: Polyethylene Glycol 3350* 17 GM PACKET PO PRN (21:18)
--- NOTE | 2018-12-10 21:18 | PN ---
Progress Note - Progress Note Date of Service: 12/10/18 Note: Patient with DM on insulin and Jardiance - started decardon and developed euglycemic DKA. Anion gap closed. Will d/c insulin drip and IVFs and start him back on Lantus and Lispro sliding scale and advance diet to clears per neurosx.
[2018-12-10] MEDS: Docusate LIQ* 100 MG/10 ML UDC PO SCH (21:31)
[2018-12-10] MEDS ORDERED: Insulin GLARGINE(*) 1 UNITS UNIT SUBCUT SCH ×2 (22:00)
[2018-12-10] MEDS: Insulin LISPRO* 1 UNITS UNIT SUBCUT SCH ×2 (22:38→22:39)
[2018-12-11] MEDS: Dexamethasone IV* 4 MG/ML 1 ML (4 MG) IV SLOW PU SCH ×5 (01:57→20:52)
[2018-12-11 06:05] LABS: Hematocrit 38 % (42-52); Hemoglobin 12.9 g/dL (14.0-18.0); Mean Corpuscular HGB Conc 34 g/dL (31-36); Mean Corpuscular Hemoglobin 30 pg (27-31); Mean Corpuscular Volume 89 fL (80-94); Mean Platelet Volume 8.4 fL (7.4-10.4); Platelet Count 345 10^3/uL (150-450); Red Blood Count 4.33 10^6 /uL (4.18-5.48); Red Cell Distribution Width 14 % (10.5-15); White Blood Count 9.5 10^3/uL (3.5-10.8)
[2018-12-11 06:22] LABS: BUN/Creatinine Ratio 46.8 (8-20); Calcium 8.7 mg/dL (8.6-10.3); EGFR African American 98.1 (>60); EGFR Non-African American 81.1 (>60); Magnesium 2.7 mg/dL (1.9-2.7); Phosphorus 3.7 mg/dL (2.5-5.0); Potassium 4.4 mmol/L (3.5-5.0)
[2018-12-11] MEDS ORDERED: Insulin LISPRO* 1 UNITS UNIT SUBCUT SCH (07:30)
[2018-12-11] MEDS: Insulin GLARGINE(*) 1 UNITS UNIT SUBCUT SCH ×2 (08:19→20:54)
[2018-12-11] MEDS: Docusate CAP* 100 MG PO SCH (08:20)
[2018-12-11] MEDS ORDERED: Insulin GLARGINE(*) 1 UNITS UNIT SUBCUT SCH ×2 (09:00)
[2018-12-11] MEDS: Insulin LISPRO* 1 UNITS UNIT SUBCUT SCH ×6 (10:05→18:38)
[2018-12-11] MEDS: Senna TAB PO SCH ×2 (10:06→20:59)
[2018-12-11] MEDS: Famotidine IV* 10 MG/ML 2 ML (20 mg) IV SLOW PU SCH ×2 (10:06→20:53)
[2018-12-11] MEDS: Docusate LIQ* 100 MG/10 ML UDC PO SCH (10:06)
--- NOTE | 2018-12-11 10:08 | PN ---
Progress Note - Progress Note Date of Service: 12/11/18 SOAP: Subjective: 63 y/o male post ACDF of C5/C6, C6/C7 POD # 5, now being evaluated for difficulty swallowing from soft tissue swelling. Patient is doing better after steroid therapy currently tolerating oral liquids. He has been stable over night , has remained in ICU as recommended by medicine on a insulin trip to correct his sugar levels. Patient underwent swallow evaluation and a esophagram was ordered to rule possible damage to esophagus. Patient has notice improvement with UPE motor strength, but sensation is unchanged. Objective: Vital Signs - 12 hr Temp Pulse Resp BP Pulse Ox 12/11/18 08:00 98.2 F 12/11/18 06:00 78 22 152/87 94 12/11/18 05:51 18 12/11/18 05:00 69 13 131/74 93 12/11/18 04:00 97.4 F 83 14 144/83 93 12/11/18 03:00 71 13 137/77 93 12/11/18 02:49 18 12/11/18 02:00 75 18 140/83 94 12/11/18 01:00 71 12 143/78 93 12/11/18 00:00 72 13 135/72 92 12/10/18 23:47 14 12/10/18 23:29 97.0 F 12/10/18 23:07 77 19 92 12/10/18 23:00 78 20 146/82 93 12/10/18 22:45 22 General: Patient sitting up right in chair, NAD Neuro: GCS 15 A&O x3 CN II - XII intact, UPE motor strength 5/5 bilateral, LE Sensation in UPE unchanged. Derm: Surgical wound C/D/I Assessment: 63 y/o male post ACDF C5/C6, C6/C7 POD #5 difficulty with swallowing is improving after receiving steroid therapy. Patient is able to tolerate oral liquids, has been evaluated with speech therapy, has also completed esophagram. Patient is condition is improving. Plan: 1) If cleared by medicine have patient transferred from ICU to regular unit. 2) Advance diet as indicated by speech therapy 3) Pain control as needed.
[2018-12-11] MEDS ORDERED: Lactated Ringers 1000 ML Bag* 1,000 ML IV SCH (12:00)
--- NOTE | 2018-12-11 20:41 | PN ---
Subjective Date of Service: 12/11/18 Interval History: Pt seen and examined. Meds and labs reviewed. CC: N/A ROS: Denied VENCES/dizziness, F/C, N/V, CP, SOB, increased cough, sputum production , abd pain, diarrhea, constipation, dysuria, myalgias, arthralgias, throat pain , and new skin lesions. The rest of the 14 point ROS are unremarkable. PHYSICAL EXAM: GEN APPEARANCE: Awake, not in acute distress HEENT: NC/AT, PERRLA, moist oral mucosa, (-) throat erythema NECK: Soft, supple, (-) cervical LAD, (-)JVD HEART: S1S2 WNL, RRR, No MRG CHEST: CTA, BL, GAE, No W/R/R ABD: Soft, ND/NT, NABS 4x Q EXT: No C/C/E SKIN: Warm to touch PSYCH: No active psychosis, hallucinations, depression, SI/HI Objective Active Medications: Dexamethasone Sodium Phosphate (Decadron Iv*) 4 mg IV SLOW PU Q6H [facility] Last Admin: 12/11/18 14:02 Dose: 4 mg Dextrose (D50w Syringe 50 Ml*) 12.5 gm IV PUSH .FOR FS < 60 - SS PRN PRN Reason: FS < 60 Docusate Sodium (Colace Liq*) 100 mg PO DAILY [facility] Last Admin: 12/11/18 10:06 Dose: Not Given Famotidine (Pepcid Iv*) 20 mg IV SLOW PU BID [facility] Last Admin: 12/11/18 10:06 Dose: 20 mg Hydralazine HCl (Apresoline Iv*) 5 mg IV SLOW PU Q6H PRN PRN Reason: Systolic Bp Greater Than: 160 Lactated Ringer's (Lactated Ringers 1000 Ml Bag*) 1,000 mls @ 75 mls/hr IV PER RATE [facility] Stop: 12/12/18 01:19 Last Admin: 12/11/18 14:02 Dose: 75 mls/hr Insulin Glargine (Lantus(*)) 55 units SUBCUT Q24HR@2200 [facility] Insulin Glargine (Lantus(*)) 30 units SUBCUT Q24HR [facility] Insulin Human Lispro (Humalog*) 0 units SUBCUT [facility]; Protocol Last Admin: 12/11/18 18:38 Dose: 4 units Insulin Human Lispro (Humalog*) 0 units SUBCUT [facility]; Protocol Last Admin: 12/11/18 18:38 Dose: 3 units Morphine Sulfate (Morphine Inj (Syringe))*) 2 mg IV Q4H PRN PRN Reason: PAIN - MILD Last Admin: 12/10/18 05:49 Dose: 2 mg Ondansetron HCl (Zofran Inj*) 4 mg IV Q4H PRN PRN Reason: NAUSEA/VOMITING Polyethylene Glycol/Electrolytes (Miralax*) 17 gm PO DAILY PRN PRN Reason: CONSTIPATION Senna (Senokot Tab*) 1 tab PO BID [facility] Last Admin: 12/11/18 10:06 Dose: Not Given Vital Signs - 8 hr 12/11/18 12/11/18 12/11/18 13:05 15:28 19:10 Temperature 98.4 F 97.7 F Pulse Rate 87 79 Respiratory 18 16 16 Rate Blood Pressure 151/75 152/77 (mmHg) O2 Sat by Pulse 95 99 Oximetry 12/11/18 19:12 Temperature Pulse Rate Respiratory 18 Rate Blood Pressure (mmHg) O2 Sat by Pulse Oximetry Oxygen Devices in Use Now: None Result Diagrams: 12/11/18 05:45 12/11/18 05:45 Microbiology and Other Data: Microbiology 12/10/18 16:14 Nasal Screen MRSA (PCR) - Final Nasal Mrsa Not Detected Assess/Plan/Problems-Billing Assessment: - Patient Problems (1) DKA (diabetic ketoacidoses) Current Visit: Yes Status: Acute Code(s): E11.10 - TYPE 2 DIABETES MELLITUS WITH KETOACIDOSIS WITHOUT COMA SNOMED Code(s): 191985581 Comment: -Resolved -Continue home insulin regimen and watchful waiting -Likely induced by IV steroids in the setting of not being on any long acting insulin due to poor PO intake a few days before -Discussed Saroj zambrano/Dr. Soto and mentions this can be continued as an outpt and agrees with above impression; mentioned that despite its risk of ketoacidosis, as long as pt remains on insulin especially long acting that this would be more beneficial than discontinuing it -Per Dr. Soto, he will see pt on outpatient F/U and will defer (2) Dysphagia Current Visit: Yes Status: Acute Code(s): R13.10 - DYSPHAGIA, UNSPECIFIED SNOMED Code(s): 43169734 Comment: -Likely due to pre-vertebral soft tissue edema S/P recent anterior cervical diskektomy and fusion on 12/05/18 -Appreciate speech eval and placed pt on Soft diet w/thin liquids -Continue Decadron and will defer subsequent taper w/NeuroSx team -Decreased swelling of prevertebral soft tissue via Esophagogram -Continue watchful waiting (3) GERD (gastroesophageal reflux disease) Current Visit: Yes Status: Acute Code(s): K21.9 - GASTRO-ESOPHAGEAL REFLUX DISEASE WITHOUT ESOPHAGITIS SNOMED Code(s): 178820723 Comment: -Continue Famotidine (4) DVT prophylaxis Current Visit: No Status: Acute Code(s): Z29.9 - ENCOUNTER FOR PROPHYLACTIC MEASURES, UNSPECIFIED SNOMED Code(s): 078972927 Comment: -Pt ambulatory; encourage ambulation ad libitum -Continue YANIV stockings qHS Status and Disposition: -As above -Defer w/NeuroSx
[2018-12-11] MEDS: Morphine INJ* 2 MG/ML 1 ML SYRINGE (TWO MG - NEW SYRINGE VERSION) IV PRN (22:04)
[2018-12-12] MEDS: Dexamethasone IV* 4 MG/ML 1 ML (4 MG) IV SLOW PU SCH ×2 (02:59→09:33)
[2018-12-12] MEDS ORDERED: Acetaminophen TAB* 325 MG ONE (09:31)
[2018-12-12] MEDS: Famotidine IV* 10 MG/ML 2 ML (20 mg) IV SLOW PU SCH ×2 (09:33→21:42)
[2018-12-12] MEDS: Senna TAB PO SCH ×2 (09:33→21:41)
[2018-12-12] MEDS: Insulin GLARGINE(*) 1 UNITS UNIT SUBCUT SCH ×2 (09:34→21:41)
[2018-12-12] MEDS: Insulin LISPRO* 1 UNITS UNIT SUBCUT SCH ×6 (09:34→18:32)
--- NOTE | 2018-12-12 09:40 | PN ---
Progress Note - Progress Note Date of Service: 12/12/18 SOAP: Subjective: 63 y/o male post ACDF of C5/C6, C6/C7 POD # 5, now being evaluated for difficulty swallowing from soft tissue swelling. Patient is doing better after steroid therapy currently tolerating oral liquids. He was transferred [facility] from ICU. Currently he is tolerating liquids and soft foods PO and feels his throat pain has improved. Patient still on IV Decadron 4 mg IV Q 6 hrs, and will need to be tappered. His glucose levels remain elevated and on reading in the 300's over night. Overall patient is stable and is feeling better. Objective: Vital Signs - 8 hr 12/12/18 12/12/18 02:59 09:00 Temperature 97.7 F 97.4 F Pulse Rate 62 68 Respiratory 16 16 Rate Blood Pressure 142/75 150/78 (mmHg) O2 Sat by Pulse 96 94 Oximetry General: Patient sitting up right in chair, NAD Neuro: GCS 15 A&O x3 CN II - XII intact, UPE motor strength 5/5 bilateral, LE Sensation in UPE unchanged. Derm: Surgical wound C/D/I Assessment: 63 y/o male post ACDF C5/C6, C6/C7 POD #5 difficulty with swallowing is improving after receiving steroid therapy. Patient is able to tolerate oral liquids, has been evaluated with speech therapy, has also completed esophagram, which was normal. Patient tolerating liquids and soft food PO. Plan: 1) Change Decadron 4 mg Q 12 hrs IV 2) Advance diet as tolerated
[2018-12-12] MEDS: Docusate LIQ* 100 MG/10 ML UDC PO SCH (09:49)
--- NOTE | 2018-12-12 17:39 | PN ---
Subjective Date of Service: 12/12/18 Interval History: Patient seen today, he was sitting up in chair tolerating his breakfast tray. improved swallow functions. Neurosurgery started tapering his steroid. BG elevated steroid induced Past Medical History: Unchanged from Admission Objective Active Medications: Acetaminophen (Tylenol Tab*) 325 mg PO Q6H PRN PRN Reason: PAIN OR TEMPERATURE Dexamethasone Sodium Phosphate (Decadron Iv*) 4 mg IV SLOW PU Q12HR ON [facility] OF [facility] Dextrose (D50w Syringe 50 Ml*) 12.5 gm IV PUSH .FOR FS < 60 - SS PRN PRN Reason: FS < 60 Docusate Sodium (Colace Liq*) 100 mg PO DAILY [facility] Last Admin: 12/12/18 09:49 Dose: Not Given Famotidine (Pepcid Iv*) 20 mg IV SLOW PU BID [facility] Last Admin: 12/12/18 09:33 Dose: 20 mg Hydralazine HCl (Apresoline Iv*) 5 mg IV SLOW PU Q6H PRN PRN Reason: Systolic Bp Greater Than: 160 Insulin Glargine (Lantus(*)) 55 units SUBCUT Q24HR@2200 [facility] Last Admin: 12/11/18 20:54 Dose: 55 units Insulin Glargine (Lantus(*)) 30 units SUBCUT Q24HR [facility] Last Admin: 12/12/18 09:34 Dose: 30 unit Insulin Human Lispro (Humalog*) 0 units SUBCUT [facility]; Protocol Last Admin: 12/12/18 12:59 Dose: 4 units Insulin Human Lispro (Humalog*) 0 units SUBCUT [facility]; Protocol Last Admin: 12/12/18 12:11 Dose: 12 units Morphine Sulfate (Morphine Inj (Syringe))*) 2 mg IV Q4H PRN PRN Reason: PAIN - MILD Last Admin: 12/11/18 22:04 Dose: 2 mg Ondansetron HCl (Zofran Inj*) 4 mg IV Q4H PRN PRN Reason: NAUSEA/VOMITING Polyethylene Glycol/Electrolytes (Miralax*) 17 gm PO DAILY PRN PRN Reason: CONSTIPATION Senna (Senokot Tab*) 1 tab PO BID [facility] Last Admin: 12/12/18 09:33 Dose: 1 tab Vital Signs - 8 hr 05/23/19 05/23/19 05/23/19 10:35 11:40 11:50 Temperature 97.8 F Pulse Rate 73 68 Respiratory 18 Rate Blood Pressure 158/83 189/86 152/92 (mmHg) O2 Sat by Pulse 96 99 Oximetry Oxygen Devices in Use Now: None Appearance: Awake, alert. no distress Eyes: No Scleral Icterus, PERRLA Ears/Nose/Mouth/Throat: NL Teeth, Lips, Gums Neck: - - cervical collar in place. Respiratory: Symmetrical Chest Expansion and Respiratory Effort, Clear to Auscultation Cardiovascular: NL Sounds; No Murmurs; No JVD, RRR, No Edema Extremities: No Edema Neurological: Alert and Oriented x 3 Result Diagrams: 12/11/18 05:45 12/11/18 05:45 Microbiology and Other Data: Microbiology 12/10/18 16:14 Nasal Screen MRSA (PCR) - Final Nasal Mrsa Not Detected Assess/Plan/Problems-Billing Assessment: 63 y/o male admitted for dysphagia post cervical diskectomy and fusion at C5-C6 and C6-C7 on 12/05/18 discharged home and returned 12/09/18 with dysphagia without SOB and CT cervical spine reveale prevertebral edema started on IV decadron. - Patient Problems (1) DKA (diabetic ketoacidoses) Current Visit: Yes Status: Acute Code(s): E11.10 - TYPE 2 DIABETES MELLITUS WITH KETOACIDOSIS WITHOUT COMA SNOMED Code(s): 023815571 Comment: - Resolved - Likely induced by IV steroids in the setting of not being on any long acting insulin due to poor PO intake a few days before - Dr. Urias discussed Saroj zambrano/Dr. Soto and mentions this can be continued as an outpt and agrees with above impression; Dr. Soto, he will see pt on outpatient F/U - Continue his lantus currenlty on 55 units & 30 units plus SS (2) Diabetes mellitus Current Visit: No Status: Acute Code(s): E11.9 - TYPE 2 DIABETES MELLITUS WITHOUT COMPLICATIONS SNOMED Code(s): 24675557 Comment: - Dr. Urias discussed Saroj zambrano/Dr. Soto and mentions this can be continued as an outpt and agrees with above impression; Dr. Soto, he will see pt on outpatient F/U - Continue his lantus currenlty on 55 units & 30 units plus SS (3) Dysphagia Current Visit: Yes Status: Acute Code(s): R13.10 - DYSPHAGIA, UNSPECIFIED SNOMED Code(s): 72282728 Comment: -Likely due to pre-vertebral soft tissue edema S/P recent anterior cervical diskektomy and fusion on 12/05/18 - placed pt on Soft diet w/thin liquids, Continue Decadron on 4 mg Q 12, will see if he can switched to po in am (4) GERD (gastroesophageal reflux disease) Current Visit: Yes Status: Acute Code(s): K21.9 - GASTRO-ESOPHAGEAL REFLUX DISEASE WITHOUT ESOPHAGITIS SNOMED Code(s): 144594581 Comment: -Continue Famotidine (5) Hyperlipidemia Current Visit: No Status: Acute Code(s): E78.5 - HYPERLIPIDEMIA, UNSPECIFIED SNOMED Code(s): 15271744 Comment: - Continue atorvastatin, Ezitimibe (6) Hypertension Current Visit: No Status: Acute Code(s): I10 - ESSENTIAL (PRIMARY) HYPERTENSION SNOMED Code(s): 19582115 Comment: - hydralazine prn, now that he takes po will resume lisinopril (7) S/P cervical discectomy Current Visit: No Status: Acute Code(s): Z98.890 - OTHER SPECIFIED POSTPROCEDURAL STATES SNOMED Code(s): 564107410 (8) DVT prophylaxis Current Visit: No Status: Acute Code(s): Z29.9 - ENCOUNTER FOR PROPHYLACTIC MEASURES, UNSPECIFIED SNOMED Code(s): 589290835 Comment: -Pt ambulatory; encourage ambulation ad libitum -Continue YANIV stockings qHS Status and Disposition: -As above -Defer w/NeuroSx
[2018-12-12] MEDS: Acetaminophen TAB* 325 MG PO PRN (18:57)
[2018-12-12] MEDS ORDERED: Dexamethasone IV* 4 MG/ML 1 ML (4 MG) IV SLOW PU SCH (21:00)
[2018-12-12] MEDS ORDERED: Lisinopril TAB* 10 MG PO SCH (21:00)
--- NOTE | 2018-12-13 05:52 | PN ---
Progress Note - Progress Note Date of Service: 12/13/18 SOAP: Subjective: 63 y/o male post ACDF of C5/C6, C6/C7 now being evaluated for difficulty swallowing from soft tissue swelling. Patient is doing better after steroid therapy currently tolerating oral liquids and soft diet. Patient has been stable and has no further issues. Objective: Vital Signs 12/13/18 12/13/18 00:10 02:40 Temperature 97.1 F 97 F Pulse Rate 61 62 Respiratory 20 20 Rate Blood Pressure 132/72 132/64 (mmHg) O2 Sat by Pulse 97 92 Oximetry Patient sitting up right in chair, NAD Neuro: GCS 15 A&O x3 CN II - XII intact, UPE motor strength 5/5 bilateral, LE Sensation in UPE unchanged. Derm: Surgical wound C/D/I Assessment: 63 y/o male post ACDF has some post soft tissue swelling causing difficulty swallowing has improved with treatment, He is now able to tolerate food and liquids by mouth. At this time possible ready for discharge home. Plan: 1) Valeriy dose of Decadron 2mg oral Q 12 2) Pain control as needed 3) Follow up C spine X ray 4) Advance diet as tolerated 5) IF ST feels patient is stable with swallowing, patient cleared to go home Nsx standpoint.
[2018-12-13] MEDS: Acetaminophen TAB* 325 MG PO PRN ×2 (07:57→13:38)
[2018-12-13] MEDS: Senna TAB PO SCH (07:58)
[2018-12-13] MEDS: Docusate LIQ* 100 MG/10 ML UDC PO SCH (07:58)
[2018-12-13] MEDS: Famotidine IV* 10 MG/ML 2 ML (20 mg) IV SLOW PU SCH (07:59)
[2018-12-13] MEDS ORDERED: Dexamethasone IV* 4 MG/ML 1 ML (4 MG) PO SCH (09:00)
[2018-12-13] MEDS ORDERED: Dexamethasone IV* 4 MG/ML 1 ML (4 MG) IV SLOW PU SCH (09:00)
[2018-12-13] MEDS ORDERED: Pantoprazole TAB * 40 MG TAB PO SCH (09:00)
[2018-12-13] MEDS: Insulin GLARGINE(*) 1 UNITS UNIT SUBCUT SCH (09:30)
[2018-12-13] MEDS: Insulin LISPRO* 1 UNITS UNIT SUBCUT SCH ×6 (09:30→18:31)
--- NOTE | 2018-12-13 13:19 | PN ---
Subjective Date of Service: 12/13/18 Interval History: Patient seen today, doing well no fever or chills. Able to tolerate po diet well, He is taking pill but he has to crush them. His BG has been well below 200 and his AG has been closed for more than 24hrs. I explained to patient medically he is stable from medical point of view. I will relay that to neurosurgery Past Medical History: Unchanged from Admission Objective Active Medications: Acetaminophen (Tylenol Tab*) 325 mg PO Q6H PRN PRN Reason: PAIN OR TEMPERATURE Last Admin: 12/13/18 07:57 Dose: 325 mg Dexamethasone Sodium Phosphate (Decadron Iv*) 2 mg PO Q12HR [facility] Last Admin: 12/13/18 09:42 Dose: Not Given Dextrose (D50w Syringe 50 Ml*) 12.5 gm IV PUSH .FOR FS < 60 - SS PRN PRN Reason: FS < 60 Docusate Sodium (Colace Liq*) 100 mg PO DAILY [facility] Last Admin: 12/13/18 07:58 Dose: Not Given Hydralazine HCl (Apresoline Iv*) 5 mg IV SLOW PU Q6H PRN PRN Reason: Systolic Bp Greater Than: 160 Insulin Glargine (Lantus(*)) 55 units SUBCUT Q24HR@2200 [facility] Last Admin: 12/12/18 21:41 Dose: 55 units Insulin Glargine (Lantus(*)) 30 units SUBCUT Q24HR [facility] Last Admin: 12/13/18 09:30 Dose: 30 unit Insulin Human Lispro (Humalog*) 0 units SUBCUT AC [facility]; Protocol Last Admin: 12/13/18 09:30 Dose: 3 units Insulin Human Lispro (Humalog*) 0 units SUBCUT AC [facility]; Protocol Last Admin: 12/13/18 09:30 Dose: 3 units Lisinopril (Prinivil Tab*) 20 mg PO BEDTIME [facility] Last Admin: 12/12/18 21:41 Dose: 20 mg Morphine Sulfate (Morphine Inj (Syringe))*) 2 mg IV Q4H PRN PRN Reason: PAIN - MILD Last Admin: 12/11/18 22:04 Dose: 2 mg Ondansetron HCl (Zofran Inj*) 4 mg IV Q4H PRN PRN Reason: NAUSEA/VOMITING Pantoprazole Sodium (Protonix Tab*) 40 mg PO DAILY [facility] Last Admin: 12/13/18 09:42 Dose: Not Given Polyethylene Glycol/Electrolytes (Miralax*) 17 gm PO DAILY PRN PRN Reason: CONSTIPATION Senna (Senokot Tab*) 1 tab PO BID [facility] Last Admin: 12/13/18 07:58 Dose: 1 tab Vital Signs - 8 hr 12/13/18 08:00 Respiratory 18 Rate Oxygen Devices in Use Now: None Appearance: Awake, alert no distress. taking po diet well Eyes: No Scleral Icterus, - - EOMI, Neck collar Ears/Nose/Mouth/Throat: NL Teeth, Lips, Gums, Mucous Membranes Moist Neck: NL Appearance and Movements; NL JVP, Trachea Midline Respiratory: Symmetrical Chest Expansion and Respiratory Effort, Clear to Auscultation Cardiovascular: NL Sounds; No Murmurs; No JVD, RRR Abdominal: NL Sounds; No Tenderness; No Distention Extremities: No Edema Skin: No Rash or Ulcers Neurological: Alert and Oriented x 3 Result Diagrams: 12/11/18 05:45 12/11/18 05:45 Microbiology and Other Data: Microbiology 12/10/18 16:14 Nasal Screen MRSA (PCR) - Final Nasal Mrsa Not Detected Assess/Plan/Problems-Billing Assessment: 63 y/o male admitted for dysphagia post cervical diskectomy and fusion at C5-C6 and C6-C7 on 12/05/18 discharged home and returned 12/09/18 with dysphagia without SOB and CT cervical spine reveale prevertebral edema started on IV decadron. - Patient Problems (1) DKA (diabetic ketoacidoses) Current Visit: Yes Status: Acute Code(s): E11.10 - TYPE 2 DIABETES MELLITUS WITH KETOACIDOSIS WITHOUT COMA SNOMED Code(s): 528382644 Comment: - Resolved - Likely induced by IV steroids in the setting of not being on any long acting insulin due to poor PO intake a few days before. - Dr. Urias discussed Jiasharad w/Dr. Soto and mentions this can be continued as an outpt and agrees with above impression; Dr. Soto, he will see pt on outpatient F/U - Continue his lantus currenlty on 55 units & 30 units plus SS and he does have Levemir and novolog at home. I explained to patient that he can resume his Jardiance at home. He is guarded about that and it is ok as well to wait until he follows with Dr. Soto as outpatient (2) Diabetes mellitus Current Visit: No Status: Acute Code(s): E11.9 - TYPE 2 DIABETES MELLITUS WITHOUT COMPLICATIONS SNOMED Code(s): 53684629 Comment: - Dr. Urias discussed Jiardance w/Dr. Soto and mentions this can be continued as an outpt and agrees with above impression; Dr. Soto, he will see pt on outpatient F/U - Continue his lantus currenlty on 55 units & 30 units plus SS (3) Dysphagia Current Visit: Yes Status: Acute Code(s): R13.10 - DYSPHAGIA, UNSPECIFIED SNOMED Code(s): 51365754 Comment: -Likely due to pre-vertebral soft tissue edema S/P recent anterior cervical diskektomy and fusion on 12/05/18 - placed pt on Soft diet w/thin liquids, Continue Decadron on 4 mg Q 12, on PO now, taper as per neurosurgery - Medically stable for discharge (4) GERD (gastroesophageal reflux disease) Current Visit: Yes Status: Acute Code(s): K21.9 - GASTRO-ESOPHAGEAL REFLUX DISEASE WITHOUT ESOPHAGITIS SNOMED Code(s): 706066526 Comment: on Pantoprazole while on steroid (5) Hyperlipidemia Current Visit: No Status: Acute Code(s): E78.5 - HYPERLIPIDEMIA, UNSPECIFIED SNOMED Code(s): 70302378 Comment: - Continue atorvastatin, Ezitimibe (6) Hypertension Current Visit: No Status: Acute Code(s): I10 - ESSENTIAL (PRIMARY) HYPERTENSION SNOMED Code(s): 96566027 Comment: - resumed lisinopril (7) S/P cervical discectomy Current Visit: No Status: Acute Code(s): Z98.890 - OTHER SPECIFIED POSTPROCEDURAL STATES SNOMED Code(s): 219260496 (8) DVT prophylaxis Current Visit: No Status: Acute Code(s): Z29.9 - ENCOUNTER FOR PROPHYLACTIC MEASURES, UNSPECIFIED SNOMED Code(s): 805098641 Comment: -Pt ambulatory; encourage ambulation ad libitum -Continue YANIV stockings qHS Status and Disposition: -As above, Medically stable for discharge from medical point of view -Defer w/NeuroSx
[2018-12-13 17:03] VITALS: BP 148/71
--- NOTE | 2018-12-13 18:48 | DS ---
Date of Admission: 12/09/18 Date of Discharge: 12/14/18 Disposition on Discharge : [facility] Discourse: 63 y/o male post ACDF of C5/C6, C6/C7 on 12/05/[address] Ruff, patient was discharged home from hospital on 12/07/18. Over the weekend he began to experience increased post surgical pain and increased difficulty with swallowing. His called the clinic and explained his symptoms and was directed to follow up in the ER to complete C spine imaging. His x ray revealed significant soft tissue swelling around the surgery site. Patient was started on IV steroid treatment. Since he is a diabetic. medicine was consulted to manage his glucose levels. Additional testing was completed, an esophagram was ordered rule out possible damage to the esophagus, which was negative. Also speech therapy was consulted to due swallow eval. He continued to get steroid therapy and his glucose levels became elevated. The medicine team place Mr. Saleh in the ICU and started him on a insulin drip. Patient was in the ICU for a day and was transferred to short stay unit after glucose levels were better controlled. His swallowing function gradually improved, he started with liquids, advanced to thick liquids and soft food. His steroid treatment was tappered and glucose levels continued to improve. Patient is now able tolerate food and liquids by mouth without any issues. He has been stable over the last 24 hours and is ready for discharge. He will follow up in neurosurgery clinic . He has been given discharge instructions, which include no heavy lifting , bending, and should continue to wear Bonesteel J collar at all times.
== END 2018-12-13 18:55 | disposition home health service (06) | DRG 813 ==
LOC: ED 14:42 → MED 22:20 → ICU 12-10 09:53 → SSU 12-11 12:38 → MED 12-12 11:21
PROVIDERS: ADMIT Pediatrics; ATTEND Neurological Surgery
DX: M96.89 Other intraoperative and postprocedural complications and disorders of the musculoskeletal system (principal); E11.10 Type 2 diabetes mellitus with ketoacidosis without coma; M47.12 Other spondylosis with myelopathy, cervical region; E11.42 Type 2 diabetes mellitus with diabetic polyneuropathy; R13.19 Other dysphagia; M79.89 Other specified soft tissue disorders; R60.0 Localized edema; I10 Essential (primary) hypertension; K21.9 Gastro-esophageal reflux disease without esophagitis; E78.5 Hyperlipidemia, unspecified; E66.9 Obesity, unspecified; Z79.82 Long term (current) use of aspirin; Z79.4 Long term (current) use of insulin; Z79.899 Other long term (current) drug therapy; Z88.8 Allergy status to other drugs, medicaments and biological substances; Z83.3 Family history of diabetes mellitus; Z82.3 Family history of stroke; Z87.891 Personal history of nicotine dependence; Z68.36 Body mass index [BMI] 36.0-36.9, adult
CPT/HCPCS: 36415; 36600; 70491; 72020; 72050; 74220; 80048; 80053; 81003; 82010; 82803; 83605; 83735; 84100; 85025; 85027; 85610; 86850; 86900; 86901; 87641; 99284; A9270-GY; J0360; J1100; J1815; J2270; Q9967

== ENCOUNTER 2019-01-07 07:19 | Day surgery (SDC) | payer BC ==
--- NOTE | 2019-01-02 13:04 | HP ---
PREOPERATIVE HISTORY AND PHYSICAL: DATE OF SURGERY/ADMISSION: 01/07/19 - [facility] DATE OF OFFICE VISIT/ENCOUNTER: 12/25/18 ATTENDING SURGEON: Jenni Lam MD.* (DICTATED BY TONYA VELASQUEZ) PROCEDURE: Left wrist carpal tunnel release, ulnar nerve decompression at left elbow. HISTORY OF PRESENT ILLNESS: This is a 63-year-old male who was referred to Dr. Lam by Dr. Ruff for evaluation of his left upper extremity. He has been a diabetic for 20 years. He has been complaining of numbness and tingling in the left upper extremity for several months. He has some cervical disk problems that have been and are being addressed by Dr. Ruff. Additionally , a nerve conduction study has shown that he has carpal tunnel syndrome on the left and ulnar neuropathy at the elbow on the left. The patient denies any specific injury. He has noticed weakness in his hand. He has numbness and tingling in his hand. He cannot combat engineer things very tightly and has noted significant muscle wasting over the past several months to a year. He recently underwent cervical diskectomies and fusion at C5-C6 performed [address] Dr. Ruff and is currently in a cervical collar. He would at this time like to proceed with surgical intervention for his left carpal tunnel and his ulnar nerve compression at the elbow. PAST MEDICAL HISTORY: 1. Diabetes. 2. Gout. 3. History of pneumonia. 4. History of cervical disk disease. 5. Hypertension. 6. Seasonal allergies. PAST SURGICAL HISTORY: 1. Appendectomy age 3. 2. Wart removal. 3. Cervical diskectomy/fusion at C5-C6. MEDICATIONS: 1. Aspirin 81 mg daily. 2. Ezetimibe 10 mg daily. 3. Jardiance 10 mg daily. 4. Levemir FlexTouch 100 unit/mL 30 units in the morning, 50 units at night, maximum daily dose of 100 units. 5. Lisinopril 20 mg daily. 6. Loratadine-D 24 Hour 10-240 mg 1 tab daily. 7. Multivitamin daily. 8. NovoLog FlexPen 100 unit/mL 20 units before breakfast and lunch and 24 units at dinner. 9. Pravastatin sodium 20 mg daily. 10. Vitamin D maximum strength 1000 units daily. ALLERGIES: HYDROCODONE causes nausea, JARDIANCE - reaction unknown. FAMILY MEDICAL HISTORY: Diabetes and aortic aneurysm. SOCIAL HISTORY: The patient is employed by the [employer], [employer]. He is a former smoker. He quit 20 years ago. Prior to that, he smoked up to 2 packs per day for 30 years. He denies recreational drug use. He drinks alcohol on occasion. REVIEW OF SYSTEMS: Negative for general, cephalic, cardiovascular, respiratory , GI, , other musculoskeletal, integumentary, endocrine, neurologic and hematologic symptoms. Infectious disease: Negative for MRSA, hepatitis C, HIV. PHYSICAL EXAMINATION GENERAL: Well developed, well nourished 63-year-old male in no acute distress. VITAL SIGNS: Height 5 feet 9.5 inches, weight 257 pounds, pulse rate 81, and blood pressure 141/78. HEENT: Normocephalic, atraumatic. Pupils were equal, round, and reactive to light and accommodation. Extraocular movements are intact. Throat is clear. NECK: Supple. No palpable lymph nodes. PULMONARY: Lungs are clear to auscultation bilaterally. No wheezes, rales, or rhonchi. CARDIOVASCULAR: Regular rate and rhythm. S1, S2, no murmurs, rubs or gallops. No edema. ABDOMEN: Positive bowel sounds, soft and nontender. MUSCULOSKELETAL: On exam of his left upper extremity, he has marked interosseus wasting in the left hand and mild thenar wasting. Marked decreased combat engineer strength and finger abduction strength. Mild loss of thumb abduction strength. Decreased sensation in his fingers. Muscle wasting is significant compared to his right hand. He has normal range of motion in both elbows, fingers, and wrists. NEUROLOGICAL: Alert and oriented x3. Cranial nerves II through XII are intact. Sensation is intact to light touch. IMPRESSION: Left wrist carpal tunnel syndrome and ulnar neuropathy at the left elbow. PLAN: The patient is scheduled to undergo a left wrist carpal tunnel release and an ulnar nerve decompression at the left elbow with Dr. Lam on 01/07/19. He will return to the office 10 days postop for followup and suture removal. A prescription for Ultracet was e-scribed to the patient's pharmacy for postoperative pain management. TONYA VELASQUEZ [id number]/[facility] #: [id number] MTDD
[~2019-01-07 07:19] MED LIST changes: +Famotidine IV* 10 MG/ML 2 ML (20 mg) IV ONE; +Famotidine IV* 10 MG/ML 2 ML (20 mg) ONE; +Lactated Ringers 1000 ML Bag* 1,000 ML IV SCH
[2019-01-07] MEDS ORDERED: Naloxone* 0.4 MG/ML 1 ML VIAL IV PRN (07:20)
[2019-01-07] MEDS ORDERED: Acetaminophen TAB* 325 MG PO PRN (07:20)
[2019-01-07] MEDS ORDERED: Ondansetron INJ* 2 MG/ML VIAL IV PRN (07:20)
[2019-01-07] MEDS ORDERED: Ketorolac INJ* 30 MG/ML 1 ML VIAL IV PRN (07:20)
[2019-01-07] MEDS ORDERED: fentaNYL* 50 MCG/ML 2 ML VIAL (100 MCG VIAL) IV PRN (07:20)
[2019-01-07] MEDS ORDERED: fentaNYL* 50 MCG/ML 2 ML VIAL (100 MCG VIAL) ONE (07:54)
[2019-01-07] MEDS ORDERED: Propofol* 10 MG/ML 20 ML BTL ONE (07:54)
[2019-01-07] MEDS ORDERED: Midazolam* 1 MG/ML 5 ML VIAL (5 MG) ONE (07:54)
[2019-01-07] MEDS ORDERED: Lidocaine 2% PF * 5 ML VIAL ONE (07:54)
[2019-01-07] MEDS ORDERED: Ondansetron INJ* 2 MG/ML VIAL ONE (10:24)
[2019-01-07 11:11] VITALS: BP 134/69
--- NOTE | 2019-01-07 14:43 | OP ---
CC: Dr. Lam OPERATIVE NOTE: DATE OF OPERATION: 01/07/19 DATE OF : 55 SURGEON: Jenni Lam MD. [employer] DATABASE MANAGER: TONYA Dupont. ANESTHESIA: Local MAC. PRE-OP DIAGNOSIS: Left carpal tunnel syndrome and ulnar nerve compression at the left elbow. POST-OP DIAGNOSIS: Left carpal tunnel syndrome and ulnar nerve compression at the left elbow. OPERATIVE PROCEDURE: Ulnar nerve decompression of the left elbow and left carpal tunnel release. ESTIMATED BLOOD LOSS: Zero. TOURNIQUET TIME: Approximately 40 minutes. INDICATION FOR PROCEDURE: Reuben is a 63-year-old man who has numbness and tingling in his left jasmine nd with wasting of his interosseous muscles. He has on nerve conduction study carpal tunnel syndrome and ulnar nerve compression at the left elbow. He presents for decompression of the left ulnar ner ve at the elbow and left carpal tunnel release. DESCRIPTION OF PROCEDURE: The patient was brought to the operating room, was given a sedation anesth etic and a local infiltration of 10 cc of 1% plain lidocaine in the palm of his left hand and 10 cc o f 0.5% plain Marcaine with an additional 5 cc at the left elbow. The skin of the left upper extremit y was prepped and draped in the usual sterile fashion. The upper extremity was exsanguinated and the tourniquet elevated to 250 mmHg. A longitudinal incision was made in the palm of his hand in line w ith the ring finger. We dissected through the subcutaneous tissue down to the transverse carpal liga ment. The ligament was divided sharply with a knife and then more proximally with the scissors. The nerve was dissected free from the surrounding tissue and there was an area of moderate compression a t the bent portion of the ligament. The wound was irrigated and the skin edges were reapproximated w ith 4-0 nylon suture. Next, a curvilinear incision was made centered between the medial epicondyle a nd the tip of the olecranon process. We dissected bluntly through the subcutaneous tissue. Branches of the medial antebrachial cutaneous nerve were located and preserved. The ulnar nerve was dissecte d out proximal to the elbow for several centimeters and then distal. The superficial and deep portio n of the FCR muscle were incised completely releasing the nerve, which was in good condition. The wo und was irrigated. Then the subcutaneous tissue was closed with 2-0 Vicryl suture. The skin was sharmin pproximated with skin chio and the wounds were dressed with Xeroform, 4x4s, Webril, and an Rito wra p. The patient tolerated the procedure well and was brought to the recovery room in good condition. [id number]/[facility] #: [id number]
== END 2019-01-07 11:00 | disposition home or self-care (01) ==
LOC: OREAST 07:19
PROVIDERS: ATTEND Orthopaedic Surgery
DX: G56.01 Carpal tunnel syndrome, right upper limb (principal); G56.22 Lesion of ulnar nerve, left upper limb; E11.9 Type 2 diabetes mellitus without complications; M10.9 Gout, unspecified; I10 Essential (primary) hypertension; J30.2 Other seasonal allergic rhinitis; Z87.01 Personal history of pneumonia (recurrent); Z79.82 Long term (current) use of aspirin; Z88.5 Allergy status to narcotic agent; Z88.8 Allergy status to other drugs, medicaments and biological substances; Z87.891 Personal history of nicotine dependence
CPT/HCPCS: J2250; J2405; J2704; J3010